=== PATIENT | male | born 1975 | race Caucasian/White ===

== ENCOUNTER 2016-12-17 21:50 | Inpatient (IN) | payer OTHER ==
[2016-12-17 22:42] LABS: BASO # 0.1 K/uL (0.0-0.2); BASO % 1.3 % (0.0-2.0); EOS # 0.1 K/uL (0.0-0.7); EOS % 0.9 % (0.0-4.0); HEMATOCRIT 34.8 % (35.0-51.0); LYMPH # 0.7 K/uL (1.0-4.3); LYMPH % 11.7 % (20.0-40.0); MEAN CELL VOLUME 99.8 fl (80.0-94.0); MEAN CORPUSCULAR HEMOGLOBIN 32.2 pg (27.0-31.0); MEAN CORPUSCULAR HGB CONC 32.3 g/dL (33.0-37.0); MONO # 0.4 K/uL (0.0-0.8); MONO % 7.6 % (0.0-10.0); NEUT # 4.6 K/uL (1.8-7.0); NEUT % 78.5 % (50.0-75.0); NRBC % 0.2 % (0.0-0.0); RED CELL DISTRIBUTION WIDTH 16.2 % (11.5-14.5); WHITE BLOOD COUNT 5.8 K/uL (4.8-10.8)
[2016-12-17 22:59] LABS: ALB/GLOB RATIO 1.2 (1.0-2.1); CALCIUM 9.7 mg/dL (8.4-10.2); TOTAL PROTEIN 7.5 G/DL (6.3-8.2)
[2016-12-17 23:21] LABS: ABG ALLEN TEST YES; ARTERIAL BLOOD GAS HCO3 27.8 mmol/L (21-28); ARTERIAL BLOOD GAS PH 7.51 (7.35-7.45); ARTERIAL BLOOD GAS PO2 110 mm/Hg (80-100)
[2016-12-17 23:40] LABS: TROPONIN I 0.211 ng/mL (0.00-0.120)
--- NOTE | 2016-12-17 23:40 | ED PDOC ---
HPI: Abdomen Time Seen by Provider: 12/17/16 22:04 Chief Complaint (Nursing): Abdominal Pain Chief Complaint (Provider): abdominal pain History Per: Patient History/Exam Limitations: no limitations Outside of [place] travel?: No Additional Complaint(s): 41yo M in ED with hx of Lupus, ESRD, HTN dialysis T TH Sat. last dialysis performed yesterday in ED with c/o of 1 week of abdominal pain and SOB worsened today with increased swelling to abdomen and associated pain. denies diarrhea, difficulty with urination, vomiting or cough. Past Medical History Reviewed: Historical Data, Nursing Documentation, Vital Signs Vital Signs: Last Vital Signs Temp 97.8 F 12/17/16 21:54 Pulse Resp 130 H 12/17/16 21:54 BP 176/106 H 12/17/16 21:54 Pulse Ox 98 12/18/16 00:00 - Medical History PMH: Anemia, HTN, End Stage Renal Disease, Chronic Kidney Disease Denies: HIV - Family History Family History: States: No Known Family Hx - Home Medications Home Medications: Ambulatory Orders Medication Instructions Recorded Sevelamer Carbonate [Renvela] 800 mg PO TID 04/25/15 Cinacalcet [Sensipar] 60 mg PO DAILY #0 tab 05/03/15 Epoetin Renny [Procrit] 10,000 unit IV TTS #0 ml 05/03/15 Sevelamer Carbonate [Renvela] 0.8 gm PO TIDWM #0 packet 05/03/15 guaiFENesin/Codeine [Robitussin 5 ml PO Q6 PRN #0 udc 05/03/15 w/Codeine] Vancomycin 1 GM [Vancomycin 1GM in 1 gm IVPB TTS #0 bag 05/15/15 Normal Saline Addvantage] - Allergies Allergies/Adverse Reactions: Allergies Allergy/AdvReac Type Severity Reaction Status Date / Time No Known Allergies Allergy Verified 12/17/16 21:53 Review of Systems ROS Statement: Except As Marked, All Systems Reviewed And Found Negative Constitutional: Negative for: Fever, Chills Cardiovascular: Negative for: Chest Pain Respiratory: Positive for: Shortness of Breath, SOB with Exertion. Negative for : Sputum Gastrointestinal: Positive for: Abdominal Pain. Negative for: Nausea, Vomiting Physical Exam - Reviewed Nursing Documentation Reviewed: Yes Vital Signs Reviewed: Yes - Physical Exam Appears: Positive for: No Acute Distress, Uncomfortable Skin: Positive for: Normal Color, Warm, DRY Cardiovascular/Chest: Positive for: JVD, Murmur (aortic stenosis new onset), Tachycardia Respiratory: Positive for: Accessory Muscle Use. Negative for: Decreased Breath Sounds, Wheezing, Plerual Rub Gastrointestinal/Abdominal: Positive for: Bowel Sounds, Distended, Asicites Back: Positive for: Normal Inspection Extremity: Positive for: Pedal Edema, Swelling Neurologic/Psych: Positive for: Alert, Oriented - Laboratory Results Result Diagrams: 12/17/16 22:25 12/17/16 22:25 - ECG ECG Rhythm: Positive for: Normal QRS, Normal ST Segment, Sinus Tachycardia O2 Sat by Pulse Oximetry: 98 Pulse Ox Interpretation: Normal - Radiology X-Ray: Interpreted by Me (viewed by [facility]) X-Ray Interpretation: Heart Size - Progress ED Course And Treament: due to distension of abd will need CT of abd and chest xray. PT will get ABG, cbc,cmp, BNP, Trop EKG. CT scan ordered: IMPRESSION: Large amount of free fluid throughout the abdomen and pelvis with mesenteric edema. Thank you for allowing us to participate in the care of your patient. Dictated and Authenticated by: Felipa Roberts MD 12/17/2016 11:42 PM Eastern Time ([place] & [place]) [facility] made aware of case. pt will need paracentesis in the AM with IR Trop. and Creatine elevated. Previous records show elevated creatine in the past unchanged from 2016. Pt with elevated trop however no previous trop noted from previous records. elevated troponin may be related to elevated creatine and ESRD Pt will be admitted to [facility] for parcentisis in the AM. Re-evaluation Time: 00:13 Condition: Unchanged Medical Decision Making Medical Decision Making: admission for new onset aortic stenosis, elevated creatine and need for paracentesisi. Disposition - Clinical Impression Clinical Impression: ESRD (end stage renal disease) on dialysis, Peritoneal fluid, Elevated serum creatinine - Patient ED Disposition Is Patient to be Admitted: Yes - Disposition Disposition Time: 00:16 Condition: FAIR Forms: [facility] ([place]uan) - Pt Status Changed To: Hospital Disposition Of: Inpatient - Admit Certification Admit to Inpatient:: After my assessment, the patient will require hospitalization for at least two midnights. This is because of the severity of symptoms shown, intensity of services needed, and/or the medical risk in this patient being treated as an outpatient.
[2016-12-17 23:42] LABS: PARTIAL THROMBOPLASTIN TIME 69.2 Seconds (25.6-37.1)
--- NOTE | 2016-12-17 23:42 | CT ---
EXAM: CT Abdomen and Pelvis Without Intravenous Contrast EXAM DATE/TIME: 12/17/2016 10:13 PM CLINICAL HISTORY: 41 years old, male; Pain; Other: Diffuse abd pain. Dialysis; Additional info: Diffuse abd pain , dialysis TECHNIQUE: Axial computed tomography images of the abdomen and pelvis without intravenous contrast. All CT scans at this facility use one or more dose reduction techniques, viz.: automated exposure control; ma/kV adjustment per patient size (including targeted exams where dose is matched to indication; i.e. head); or iterative reconstruction technique. Coronal and sagittal reformatted images were created and reviewed. COMPARISON: No relevant prior studies available. FINDINGS: Cardiomegaly. Trace pleural fluid bilaterally. Free fluid in the abdomen and pelvis. The gallbladder is contracted. The liver, spleen, and pancreas are grossly normal. There are low attenuation lesions in the right kidney. The left kidney is hypotrophic. IMPRESSION: Large amount of free fluid throughout the abdomen and pelvis with mesenteric edema.
[2016-12-18 00:31] LABS: RBC URINE 4 /hpf (0-3); URINE BACTERIA RARE (<OCC); URINE BILIRUBIN NEGATIVE (NEGATIVE); URINE COLOR YELLOW (YELLOW); URINE GLUCOSE (UA) 150 mg/dL (Normal); URINE KETONE NEGATIVE (NEGATIVE); URINE LEUKOCYTE ESTERASE NEG Leu/uL (Negative); URINE PROTEIN >=500 mg/dL (NEGATIVE); URINE UROBILINOGEN 0.2-1.0 mg/dL (0.2-1.0); WBC URINE 1 /hpf (0-5)
[2016-12-18 00:32] LABS: URINE BLOOD SMALL (NEGATIVE)
[2016-12-18 06:37] LABS: MEAN CELL VOLUME 99.8 fl (80.0-94.0); MEAN CORPUSCULAR HEMOGLOBIN 32.4 pg (27.0-31.0); MEAN CORPUSCULAR HGB CONC 32.4 g/dL (33.0-37.0); RED CELL DISTRIBUTION WIDTH 15.6 % (11.5-14.5); WHITE BLOOD COUNT 7.5 K/uL (4.8-10.8)
[2016-12-18 06:53] LABS: ALB/GLOB RATIO 1.1 (1.0-2.1); BILIRUBIN,TOTAL 1.9 mg/dl (0.2-1.3); CALCIUM 9.5 mg/dL (8.4-10.2); POTASSIUM 5.6 MMOL/L (3.6-5.0); TOTAL PROTEIN 6.8 G/DL (6.3-8.2)
[2016-12-18 07:09] LABS: T4 7.74 ug/dl (5.5-11.0)
[2016-12-18 07:22] LABS: THYROID STIMULATING HORMONE 16.7 mIU/ML (0.46-4.68)
--- NOTE | 2016-12-18 07:39 | CARD ---
APPROVED REPORT EKG Measurement Heart [id number] <Conclusion> Sinus tachycardia Otherwise normal ECG
--- NOTE | 2016-12-18 08:37 | RAD ---
HISTORY: Cough COMPARISON: 04/29/2015 TECHNIQUE: Chest PA and lateral FINDINGS: LUNGS: Pulmonary nodule identified on the prior study is no longer seen. PLEURA: No significant pleural effusion identified. No pneumothorax apparent. CARDIOVASCULAR: No radiographic findings to suggest acute or significant cardiovascular disease. Stable appearance of vascular stent OSSEOUS STRUCTURES: No significant abnormalities. VISUALIZED UPPER ABDOMEN: Normal. OTHER FINDINGS: None. IMPRESSION: No active disease.
[2016-12-18] MEDS ORDERED: SEVELAMER CARBONATE PO SCH (09:00)
[2016-12-18 09:31] VITALS: BMI 28.5
--- NOTE | 2016-12-18 11:03 | CP.PCM.CON ---
History of Present Illness - History of Present Illness History of Present Illness: Patient is a 41 years of age Admitted with abdominal pain and distention. Patient known with end-stage renal disease history of fluid per se reported and hypertension in addition to that end stage renal disease he has been receiving dialysis TTS. However the patient is edematous as is today with hyperkalemia therefore withdrawn give him dialysis today extra treatment Patient complaining of some shortness of breath Medical history as noted Review of Systems - Constitutional Constitutional: As Per HPI, Weakness - Cardiovascular Cardiovascular: Dyspnea, Dyspnea on Exertion, Edema. absent: Chest Pain - Respiratory Respiratory: Dyspnea. absent: Hemoptysis - Gastrointestinal Gastrointestinal: Abdominal Pain, Bloating - Reproductive: Male Reproductive:Male: As Per HPI - Neurological Neurological: As Per HPI - Psychiatric Psychiatric: As Per HPI - Hematologic/Lymphatic Hematologic: absent: Easy Bleeding, Easy Bruising Past Patient History - Past Medical History & Family History Past Medical History?: Yes - Past Social History Smoking Status: Never Smoked - CARDIAC Hx Cardiac Disorders: Yes Hx Hypertension: Yes - PULMONARY Hx Respiratory Disorders: No - NEUROLOGICAL Hx Neurological Disorder: No - HEENT Hx HEENT Problems: No - RENAL Hx Chronic Kidney Disease: Yes Type of Dialysis Access: Left AV SHUNT Date of Last Dialysis Treatment: 12/16/16 Hx Renal Failure: Yes - ENDOCRINE/METABOLIC Hx Endocrine Disorders: Yes Hx Systemic Lupus Erythematosus: Yes - HEMATOLOGICAL/ONCOLOGICAL Hx Blood Disorders: Yes Hx AIDS: No Hx Anemia: Yes Hx Blood Transfusions: Yes Hx Human Immunodeficiency Virus (HIV): No - INTEGUMENTARY Hx Dermatological Problems: No - MUSCULOSKELETAL/RHEUMATOLOGICAL Hx Musculoskeletal Disorders: No Hx Falls: No - GASTROINTESTINAL Hx Gastrointestinal Disorders: No - GENITOURINARY/GYNECOLOGICAL Hx Genitourinary Disorders: No - PSYCHIATRIC Hx Psychophysiologic Disorder: No Hx Substance Use: No - SURGICAL HISTORY Hx Surgeries: Yes Hx Arteriovenous Shunt: Yes - ANESTHESIA Hx Anesthesia: Yes Hx Anesthesia Reactions: No Meds Allergies/Adverse Reactions: Allergies Allergy/AdvReac Type Severity Reaction Status Date / Time No Known Allergies Allergy Verified 12/17/16 21:53 - Medications Medications: Current Medications Levothyroxine Sodium (Synthroid) 25 mcg PO DAILY@0630 [facility] Sevelamer HCl (Renagel) 1,600 mg PO TID [facility] Last Admin: 12/18/16 09:28 Dose: 1,600 mg Physical Exam - Constitutional Appears: No Acute Distress - ENT Exam ENT Exam: Mucous Membranes Moist - Respiratory Exam Respiratory Exam: NORMAL BREATHING PATTERN. absent: Chest Wall Tenderness - Cardiovascular Exam Cardiovascular Exam: absent: JVD, Rubs - GI/Abdominal Exam GI & Abdominal Exam: Distended, Guarding, Normal Bowel Sounds. absent: Diminished Bowel Sounds - Extremities Exam Extremities exam: Negative for: calf tenderness - Back Exam Back exam: absent: CVA tenderness (L), CVA tenderness (R) - Neurological Exam Neurological exam: Alert Results - Vital Signs Recent Vital Signs: Last Vital Signs Temp 98.4 F 12/18/16 08:14 Pulse 105 H 12/18/16 08:14 Resp 18 12/18/16 08:14 BP 155/98 H 12/18/16 08:14 Pulse Ox 97 12/18/16 08:14 - Labs Result Diagrams: 12/18/16 05:15 12/18/16 05:15 Labs: Laboratory Results - last 24 hr 12/17/16 12/18/16 12/18/16 23:59 00:01 05:15 WBC RBC Hgb Hct MCV MCH MCHC RDW Plt Count Sodium Potassium Chloride Carbon Dioxide Anion Gap BUN Creatinine Est GFR ( Amer) Est GFR (Non-Af Amer) Random Glucose Calcium Total Bilirubin AST ALT Alkaline Phosphatase Troponin I 0.1980 H* NT-Pro-B Natriuret Pep 073265 H Total Protein Albumin Globulin Albumin/Globulin Ratio Triglycerides Cholesterol LDL Cholesterol Direct HDL Cholesterol Vitamin B12 Thyroxine (T4) TSH 3rd Generation Urine Color Yellow Urine Clarity Slighty-cloudy Urine pH 9.0 Ur Specific [place] 1.010 Urine Protein >=500 Urine Glucose (UA) 150 Urine Ketones Negative Urine Blood Small Urine Nitrate Negative Urine Bilirubin Negative Urine Urobilinogen 0.2-1.0 Ur Leukocyte Esterase Neg Urine RBC (Auto) 4 H Urine Microscopic WBC 1 Ur Squamous Epith Cells 1 Urine Bacteria Rare 12/18/16 12/18/16 05:15 05:15 WBC 7.5 RBC 3.41 L Hgb 11.0 L Hct 34.0 L MCV 99.8 H MCH 32.4 H MCHC 32.4 L RDW 15.6 H Plt Count 78 L Sodium 139 Potassium 5.6 H Chloride 101 Carbon Dioxide 24 Anion Gap 20 BUN 76 H Creatinine 9.5 H* Est GFR ( Amer) 7 Est GFR (Non-Af Amer) 6 Random Glucose 80 Calcium 9.5 Total Bilirubin 1.9 H AST 35 ALT 34 Alkaline Phosphatase 191 H Troponin I NT-Pro-B Natriuret Pep 33290 H Total Protein 6.8 Albumin 3.6 Globulin 3.2 Albumin/Globulin Ratio 1.1 Triglycerides 70 Cholesterol 114 LDL Cholesterol Direct 44 HDL Cholesterol 48 Vitamin B12 465 Thyroxine (T4) 7.74 TSH 3rd Generation 16.70 H Urine Color Urine Clarity Urine pH Ur Specific [place] Urine Protein Urine Glucose (UA) Urine Ketones Urine Blood Urine Nitrate Urine Bilirubin Urine Urobilinogen Ur Leukocyte Esterase Urine RBC (Auto) Urine Microscopic WBC Ur Squamous Epith Cells Urine Bacteria Assessment & Plan (1) ESRD (end stage renal disease) on dialysis Assessment and Plan: Patient with end stage renal disease with significant ascites leg edema abdominal pain hyperkalemia Patient dialysis scheduled TTS however we'll going to given extra hemodialysis today because of the excessive fluid and hyperkalemia Potassium 2 milliequivalents Sodium 138 Remove around 5374-0638 mL as tolerated Status: Chronic
--- NOTE | 2016-12-18 11:51 | CP.PCM.CON ---
<Abiodun Morataya - Last Filed: 12/18/16 12:53> History of Present Illness - History of Present Illness History of Present Illness: Initial GI Consult Note Luke Perez is a 41M w/ hx of ESRD on HD (TThS) 2/2 unknown etiology and lupus who presents to [facility] with complaints of abd distention. Pt states that he first noticed his abd becoming distented 1 month ago. He that that the progression was gradual. He states that he started to have generalized discomfort and pain starting 1 week ago. He denies any previous hx of liver disease. He denies any hopitalization for the same. Denies any Jaundice and sceral icterus. Pt states that this is the first incidence of abd distention. He notes that his last dialysis session was on Sat (3 days ago) and he is compliant with his schedule. Pt denies any hx of Etoh or illicit drugs. He denies any hematemesis. BRBPR, coffee ground emesis, nausea, or vomiting. He is scheduled for dialysis and abd paratensis today. Med hx: ESRD, Renal agenesis (only has 1 kidney as per EMR) Surg hx: none as per pt Social hx: Denies any illicit drugs, smoking, or alcohol consumption Family hx: denies any sig for colon ca or other malig Endo hx: Denies ROS: 12-point ROS is neg other than above Past Patient History - Past Medical History & Family History Past Medical History?: Yes - Past Social History Smoking Status: Never Smoked - CARDIAC Hx Cardiac Disorders: Yes Hx Hypertension: Yes - PULMONARY Hx Respiratory Disorders: No - NEUROLOGICAL Hx Neurological Disorder: No - HEENT Hx HEENT Problems: No - RENAL Hx Chronic Kidney Disease: Yes Type of Dialysis Access: Left AV SHUNT Date of Last Dialysis Treatment: 12/16/16 Hx Renal Failure: Yes - ENDOCRINE/METABOLIC Hx Endocrine Disorders: Yes Hx Systemic Lupus Erythematosus: Yes - HEMATOLOGICAL/ONCOLOGICAL Hx Blood Disorders: Yes Hx AIDS: No Hx Anemia: Yes Hx Blood Transfusions: Yes Hx Human Immunodeficiency Virus (HIV): No - INTEGUMENTARY Hx Dermatological Problems: No - MUSCULOSKELETAL/RHEUMATOLOGICAL Hx Musculoskeletal Disorders: No Hx Falls: No - GASTROINTESTINAL Hx Gastrointestinal Disorders: No - GENITOURINARY/GYNECOLOGICAL Hx Genitourinary Disorders: No - PSYCHIATRIC Hx Psychophysiologic Disorder: No Hx Substance Use: No - SURGICAL HISTORY Hx Surgeries: Yes Hx Arteriovenous Shunt: Yes - ANESTHESIA Hx Anesthesia: Yes Hx Anesthesia Reactions: No Meds Allergies/Adverse Reactions: Allergies Allergy/AdvReac Type Severity Reaction Status Date / Time No Known Allergies Allergy Verified 12/17/16 21:53 - Medications Medications: Current Medications Levothyroxine Sodium (Synthroid) 25 mcg PO DAILY@0630 [facility] Sevelamer HCl (Renagel) 1,600 mg PO TID [facility] Last Admin: 12/18/16 09:28 Dose: 1,600 mg Physical Exam - Constitutional Appears: Well, No Acute Distress - Head Exam Head Exam: ATRAUMATIC, NORMOCEPHALIC - Eye Exam Eye Exam: Normal appearance - ENT Exam ENT Exam: Mucous Membranes Moist - Respiratory Exam Respiratory Exam: Rhonchi, Wheezes, NORMAL BREATHING PATTERN. absent: Rales - Cardiovascular Exam Cardiovascular Exam: REGULAR RHYTHM, +S1, +S2, Systolic Murmur - GI/Abdominal Exam GI & Abdominal Exam: Distended, Hernia. absent: Guarding, Organomegaly, Rigid, Tenderness Additional comments: + shifting dullness and fluid wave - Extremities Exam Extremities exam: Positive for: pedal edema - Neurological Exam Neurological exam: Alert, Oriented x3 - Psychiatric Exam Psychiatric exam: Normal Affect, Normal Mood - Skin Skin Exam: Dry, Intact, Normal Color, Warm Results - Vital Signs Recent Vital Signs: Last Vital Signs Temp 98.4 F 12/18/16 08:14 Pulse 105 H 12/18/16 08:14 Resp 18 12/18/16 08:14 BP 155/98 H 12/18/16 08:14 Pulse Ox 97 12/18/16 08:14 - Labs Result Diagrams: 12/18/16 05:15 12/18/16 05:15 Labs: Laboratory Results - last 24 hr 12/17/16 12/18/16 12/18/16 23:59 00:01 05:15 WBC RBC Hgb Hct MCV MCH MCHC RDW Plt Count Sodium Potassium Chloride Carbon Dioxide Anion Gap BUN Creatinine Est GFR ( Amer) Est GFR (Non-Af Amer) Random Glucose Calcium Total Bilirubin AST ALT Alkaline Phosphatase Troponin I 0.1980 H* NT-Pro-B Natriuret Pep 154369 H Total Protein Albumin Globulin Albumin/Globulin Ratio Triglycerides Cholesterol LDL Cholesterol Direct HDL Cholesterol Vitamin B12 Thyroxine (T4) TSH 3rd Generation Urine Color Yellow Urine Clarity Slighty-cloudy Urine pH 9.0 Ur Specific [place] 1.010 Urine Protein >=500 Urine Glucose (UA) 150 Urine Ketones Negative Urine Blood Small Urine Nitrate Negative Urine Bilirubin Negative Urine Urobilinogen 0.2-1.0 Ur Leukocyte Esterase Neg Urine RBC (Auto) 4 H Urine Microscopic WBC 1 Ur Squamous Epith Cells 1 Urine Bacteria Rare 12/18/16 12/18/16 05:15 05:15 WBC 7.5 RBC 3.41 L Hgb 11.0 L Hct 34.0 L MCV 99.8 H MCH 32.4 H MCHC 32.4 L RDW 15.6 H Plt Count 78 L Sodium 139 Potassium 5.6 H Chloride 101 Carbon Dioxide 24 Anion Gap 20 BUN 76 H Creatinine 9.5 H* Est GFR ( Amer) 7 Est GFR (Non-Af Amer) 6 Random Glucose 80 Calcium 9.5 Total Bilirubin 1.9 H AST 35 ALT 34 Alkaline Phosphatase 191 H Troponin I NT-Pro-B Natriuret Pep 42207 H Total Protein 6.8 Albumin 3.6 Globulin 3.2 Albumin/Globulin Ratio 1.1 Triglycerides 70 Cholesterol 114 LDL Cholesterol Direct 44 HDL Cholesterol 48 Vitamin B12 465 Thyroxine (T4) 7.74 TSH 3rd Generation 16.70 H Urine Color Urine Clarity Urine pH Ur Specific [place] Urine Protein Urine Glucose (UA) Urine Ketones Urine Blood Urine Nitrate Urine Bilirubin Urine Urobilinogen Ur Leukocyte Esterase Urine RBC (Auto) Urine Microscopic WBC Ur Squamous Epith Cells Urine Bacteria Assessment & Plan - Assessment and Plan (Free Text) Assessment: Luke Trejo is a 41M w/ hx of ESRD and lupus who presents with abd distention. Etiology is likely due to renal failure vs heart failure, r/o portal HTN 2/2 liver disease 1. Ascities, likely renal vs cardiac 2. Fluid overload 3. ESRD 2/2 unknown etiology Plan: -agree with diag and [place] paracentesis - recommend abd fluid cell count, gram stain, culture, albumin - will likely go for tap today as per [employer] - will also go for another dialysis session today - will hold on abx as pt is afebrile - recommend starting diuretics as pt makes urine - would like to obtain liver CT, will need renal clearance to coordinate dialysis D/W Dr. Santillan <Sandra Santillan MD - Last Filed: 12/18/16 13:13> Meds - Medications Medications: Current Medications Levothyroxine Sodium (Synthroid) 25 mcg PO DAILY@0630 [facility] Sevelamer HCl (Renagel) 1,600 mg PO TID [facility] Last Admin: 12/18/16 09:28 Dose: 1,600 mg Results - Vital Signs Recent Vital Signs: Last Vital Signs Temp 97.6 F 12/18/16 12:06 Pulse 101 H 12/18/16 12:06 Resp 18 12/18/16 12:06 BP 159/94 H 12/18/16 12:06 Pulse Ox 97 12/18/16 12:06 - Labs Result Diagrams: 12/18/16 05:15 12/18/16 05:15 Labs: Laboratory Results - last 24 hr 12/17/16 12/18/16 12/18/16 23:59 00:01 05:15 WBC RBC Hgb Hct MCV MCH MCHC RDW Plt Count Sodium Potassium Chloride Carbon Dioxide Anion Gap BUN Creatinine Est GFR ( Amer) Est GFR (Non-Af Amer) Random Glucose Calcium Total Bilirubin AST ALT Alkaline Phosphatase Troponin I 0.1980 H* NT-Pro-B Natriuret Pep 100999 H Total Protein Albumin Globulin Albumin/Globulin Ratio Triglycerides Cholesterol LDL Cholesterol Direct HDL Cholesterol Vitamin B12 Thyroxine (T4) TSH 3rd Generation Urine Color Yellow Urine Clarity Slighty-cloudy Urine pH 9.0 Ur Specific [place] 1.010 Urine Protein >=500 Urine Glucose (UA) 150 Urine Ketones Negative Urine Blood Small Urine Nitrate Negative Urine Bilirubin Negative Urine Urobilinogen 0.2-1.0 Ur Leukocyte Esterase Neg Urine RBC (Auto) 4 H Urine Microscopic WBC 1 Ur Squamous Epith Cells 1 Urine Bacteria Rare 12/18/16 12/18/16 05:15 05:15 WBC 7.5 RBC 3.41 L Hgb 11.0 L Hct 34.0 L MCV 99.8 H MCH 32.4 H MCHC 32.4 L RDW 15.6 H Plt Count 78 L Sodium 139 Potassium 5.6 H Chloride 101 Carbon Dioxide 24 Anion Gap 20 BUN 76 H Creatinine 9.5 H* Est GFR ( Amer) 7 Est GFR (Non-Af Amer) 6 Random Glucose 80 Calcium 9.5 Total Bilirubin 1.9 H AST 35 ALT 34 Alkaline Phosphatase 191 H Troponin I NT-Pro-B Natriuret Pep 00122 H Total Protein 6.8 Albumin 3.6 Globulin 3.2 Albumin/Globulin Ratio 1.1 Triglycerides 70 Cholesterol 114 LDL Cholesterol Direct 44 HDL Cholesterol 48 Vitamin B12 465 Thyroxine (T4) 7.74 TSH 3rd Generation 16.70 H Urine Color Urine Clarity Urine pH Ur Specific [place] Urine Protein Urine Glucose (UA) Urine Ketones Urine Blood Urine Nitrate Urine Bilirubin Urine Urobilinogen Ur Leukocyte Esterase Urine RBC (Auto) Urine Microscopic WBC Ur Squamous Epith Cells Urine Bacteria Attending/Attestation - Attestation I have personally seen and examined this patient.: Yes I have fully participated in the care of the patient.: Yes I have reviewed all pertinent clinical information: Yes Notes (Text): 12/18/16 13:10 This is a 41 yr old M with history of ESRD and lupus who presents with new onset abdominal distention in setting of ascites. Etiology is likely due to renal failure vs heart failure, r/o portal HTN 2/2 liver disease. Will get abdominal doppler to rule out portal vein thrombosis. Get diagnostic and therapeutic ascitic tap and send for albumin and total protein to calculate SAAG. Consider starting diuretics - has urine output.
--- NOTE | 2016-12-18 13:11 | HP ---
CHIEF COMPLAINT: Abdominal pain. HISTORY OF PRESENT ILLNESS: This is a 41-year-old male known case of hypertension, end-stage renal disease, anemia, who is on chronic dialysis. Dialysis done yesterday last time and the patient was having abdominal pain for about 1 week, which got worse, so the patient was brought to the emergency room and was admitted for further management. PAST MEDICAL HISTORY: Significant for hypertension; end-stage renal disease, requiring renal replacement therapy; and anemia. PERSONAL HISTORY: The patient is currently nonsmoker, nondrinker, no substance abuse. REVIEW OF SYSTEMS: Positive for abdominal pain. Review of system otherwise negative for headache, dizziness, syncope, loss of consciousness, chest pain, shortness of breath, nausea, vomiting, diarrhea, constipation, anemia, joint or extremity pain. Review of systems of all other organ system is unremarkable. MEDICATIONS: The patient is on multiple medications which is as per reconciliation sheet, which was reviewed and ordered. ALLERGIES: THE PATIENT IS NOT ALLERGIC TO ANY MEDICATIONS. FAMILY HISTORY: Noncontributory. PHYSICAL EXAMINATION: GENERAL: Well built, well nourished, overweight 41-year-old male, in no acute distress. The patient is actually feeling better than yesterday and abdominal pain is almost gone. VITAL SIGNS: Temperature 98.7, pulse 102, respirations 20, blood pressure 154/83. HEENT: Pupils are reacting to light. NECK: No JVD. No thyromegaly. No lymphadenopathy. No nystagmus. Normocephalic and atraumatic skull. HEART: S1 and S2 normal and regular. No significant murmur, gallop, or rub is heard. LUNGS: Shows good bilateral air exchange. No rales or rhonchi. ABDOMEN: Shows the patient has distended abdomen with clear presence of ascites. No signs of acute abdomen. No guarding. No rigidity. No rebound. Bowel sounds are plus and normal. There is no real tenderness at this time. EXTREMITIES: No edema, no calf swelling. No tenderness. No acute ischemia. CENTRAL NERVOUS SYSTEM: Essentially unchanged. There is no sign of any acute gross focal motor or sensory neurological deficit. DIAGNOSTIC DATA: Available diagnostic data reviewed. Telemetry monitoring does not reveal any significant arrhythmias. Urinalysis is normal. TSH level is 16.7. Sodium 139, potassium 5.6, chloride 101, bicarb 24, BUN 76, creatinine 9.5. SMA-12 is unremarkable. Troponin level is 0.21. BNP is 293,000. WBC is 7.5, hemoglobin 11, hematocrit 34, and platelets 70. ADMITTING IMPRESSION: Ascites, rule out subacute bacterial peritonitis, rule out cirrhosis of liver, end-stage renal disease, hypertension, and anemia. PLAN: As ordered. Case and plan discussed with the patient. Kayode Yan MD
[2016-12-18] MEDS ORDERED: Lidocaine 1% Inj (20ml) ONE ×2 (15:00→15:07)
--- NOTE | 2016-12-18 15:14 | PCM.SURG1 ---
Surgeon's Initial Post Op Note - Surgeon's Notes Surgeon: Jeff Licona MD Language Therapist: NONE Type of Anesthesia: Local Pre-Operative Diagnosis: Ascites Operative Findings: US showed a large amount of ascites Post-Operative Diagnosis: Ascites Operation Performed: US guided paracentesis. Specimen/Specimens Removed: 6 liters of slight serosanguinous fluid Estimated Blood Loss: EBL {In ML}: 0 Blood Products Given: N/A Drains Used: No Drains Post-Op Condition: Fair Date of Surgery/Procedure: 12/18/16 Time of Surgery/Procedure: 16:00
[2016-12-18 15:20] LABS: BODY FLUID TYPE PERITONEAL/ASCITES
--- NOTE | 2016-12-18 15:58 | CP.PCM.CON ---
History of Present Illness - History of Present Illness History of Present Illness: Consultation requested for evaluation of new onset CHF HPI: 41-year-old male with past medical history significant for end-stage renal disease on hemodialysis for the last 10 years history of lupus presenting with complaints of worsening dyspnea and on exertion and abdominal distention. According to the patient at baseline he is fairly active and denies having any chest pains has NYHA for the past with dyspnea. Over the course of the last few weeks he has been getting progressively short of breath and his abdomen has been distending progressively to the point where he can barely walk with minimal activity gets severely short of breath and right now is at NYHA functional class 2/3 dyspnea. He denies having any chest pains. Does have 3 pillow orthopnea and frequent PNDs. Review of Systems - Review of Systems All systems: reviewed and no additional remarkable complaints except - Constitutional Constitutional: As Per HPI - EENT Eyes: As Per HPI Ears: As Per HPI Nose/Mouth/Throat: As Per HPI - Cardiovascular Cardiovascular: As Per HPI, Dyspnea, Dyspnea on Exertion - Respiratory Respiratory: As Per HPI, Cough, Dyspnea - Gastrointestinal Gastrointestinal: As Per HPI, Bloating - Genitourinary Genitourinary: As Per HPI - Reproductive: Male Reproductive:Male: As Per HPI - Musculoskeletal Musculoskeletal: As Per HPI - Integumentary Integumentary: As Per HPI - Neurological Neurological: As Per HPI - Psychiatric Psychiatric: As Per HPI - Endocrine Endocrine: As Per HPI - Hematologic/Lymphatic Hematologic: As Per HPI Past Patient History - Past Medical History & Family History Past Medical History?: Yes Pertinent Family History: +ve for HTN , denies any hx of CAD - Past Social History Smoking Status: Never Smoked - CARDIAC Hx Cardiac Disorders: Yes Hx Hypertension: Yes - PULMONARY Hx Respiratory Disorders: No - NEUROLOGICAL Hx Neurological Disorder: No - HEENT Hx HEENT Problems: No - RENAL Hx Chronic Kidney Disease: Yes Type of Dialysis Access: Left AV SHUNT Date of Last Dialysis Treatment: 12/16/16 Hx Renal Failure: Yes - ENDOCRINE/METABOLIC Hx Endocrine Disorders: Yes Hx Systemic Lupus Erythematosus: Yes - HEMATOLOGICAL/ONCOLOGICAL Hx Blood Disorders: Yes Hx AIDS: No Hx Anemia: Yes Hx Blood Transfusions: Yes Hx Human Immunodeficiency Virus (HIV): No - INTEGUMENTARY Hx Dermatological Problems: No - MUSCULOSKELETAL/RHEUMATOLOGICAL Hx Musculoskeletal Disorders: No Hx Falls: No - GASTROINTESTINAL Hx Gastrointestinal Disorders: No - GENITOURINARY/GYNECOLOGICAL Hx Genitourinary Disorders: No - PSYCHIATRIC Hx Psychophysiologic Disorder: No Hx Substance Use: No - SURGICAL HISTORY Hx Surgeries: Yes Hx Arteriovenous Shunt: Yes - ANESTHESIA Hx Anesthesia: Yes Hx Anesthesia Reactions: No Meds Allergies/Adverse Reactions: Allergies Allergy/AdvReac Type Severity Reaction Status Date / Time No Known Allergies Allergy Verified 12/17/16 21:53 - Medications Medications: Current Medications Cinacalcet (Sensipar) 60 mg PO DAILY [facility] Levothyroxine Sodium (Synthroid) 25 mcg PO DAILY@0630 [facility] Sevelamer HCl (Renagel) 1,600 mg PO TID [facility] Last Admin: 12/18/16 13:48 Dose: 1,600 mg Physical Exam - Constitutional Appears: Well - Head Exam Head Exam: ATRAUMATIC, NORMAL INSPECTION, NORMOCEPHALIC - Eye Exam Eye Exam: EOMI, Normal appearance, PERRL Pupil Exam: NORMAL ACCOMODATION, PERRL - ENT Exam ENT Exam: Mucous Membranes Moist, Normal Exam - Neck Exam Neck exam: Positive for: Normal Inspection - Respiratory Exam Respiratory Exam: Rales, NORMAL BREATHING PATTERN - Cardiovascular Exam Cardiovascular Exam: Tachycardia, +S1, +S2, Systolic Murmur - GI/Abdominal Exam GI & Abdominal Exam: Distended, Normal Bowel Sounds, Soft. absent: Tenderness - Extremities Exam Extremities exam: Positive for: normal inspection, pedal pulses present - Back Exam Back exam: NORMAL INSPECTION - Neurological Exam Neurological exam: Alert, CN II-XII Intact, Oriented x3, Reflexes Normal - Psychiatric Exam Psychiatric exam: Normal Affect, Normal Mood - Skin Skin Exam: Dry, Intact, Normal Color, Warm Results - Vital Signs Recent Vital Signs: Last Vital Signs Temp 98.2 F 12/18/16 14:55 Pulse 95 H 12/18/16 14:55 Resp 18 12/18/16 14:55 BP 150/94 H 12/18/16 14:55 Pulse Ox 97 12/18/16 12:06 - Labs Result Diagrams: 12/18/16 05:15 12/18/16 05:15 Labs: Laboratory Results - last 24 hr 12/18/16 15:00 Fluid Source Peritoneal/ascites Fluid Total Protein 4.2 Assessment & Plan (1) Troponin level elevated Assessment and Plan: Etiology ? 2' to CAD .vs acute systolic CHF exacerbation Keep pt on IV heparin per ACS protocol asa, bb, statins will need further w/u with cardiac catheterization Status: Acute (2) CHF (congestive heart failure), NYHA class IV Assessment and Plan: new onset will need w/u with complete heart catheterization RAAS modulators fluid removal with HD Status: Acute (3) ESRD (end stage renal disease) on dialysis Assessment and Plan: neprho following Status: Chronic (4) Lupus (systemic lupus erythematosus) Status: Acute
[2016-12-18 16:29] LABS: BF GROSS APPEARANCE BLOODY (CLEAR)
[2016-12-18] MEDS: Cinacalcet 60 MG TAB PO SCH (17:17)
[2016-12-18 17:22] LABS: BODY FLUID TOTAL COUNT 100 (0-0)
[2016-12-18 18:06] LABS: TROPONIN I 0.189 ng/mL (0.00-0.120)
[2016-12-18] MEDS ORDERED: Heparin 25,000units in D5W 25,000 UNITS/250 ML BAG IV SCH (18:30)
[2016-12-19] MEDS: Levothyroxine 25 MCG TAB PO SCH (05:55)
[2016-12-19 07:20] LABS: HEMATOCRIT 34.9 % (35.0-51.0); MEAN CORPUSCULAR HEMOGLOBIN 32.1 pg (27.0-31.0); MEAN CORPUSCULAR HGB CONC 32.4 g/dL (33.0-37.0); RED CELL DISTRIBUTION WIDTH 15.7 % (11.5-14.5); WHITE BLOOD COUNT 5.6 K/uL (4.8-10.8)
[2016-12-19 07:39] LABS: BILIRUBIN,TOTAL 1.9 mg/dl (0.2-1.3); CALCIUM 8.6 mg/dL (8.4-10.2); POTASSIUM 4.3 MMOL/L (3.6-5.0); TOTAL PROTEIN 6.2 G/DL (6.3-8.2)
--- NOTE | 2016-12-19 07:40 | CARD ---
APPROVED REPORT EXAM: Two-dimensional and M-mode echocardiogram with Doppler and color Doppler. Other Information Quality : ExcellentRhythm : NSR INDICATION Congestive Heart Failure 2D DIMENSIONS IVSd1.30 (0.7-1.1cm)LVDd5.97 (3.9-5.9cm) LVOT Diameter1.80 (1.8-2.4cm)PWd1.38 (0.7-1.1cm) IVSs1.45 (0.8-1.2cm)LVDs4.94 (2.5-4.0cm) FS (%) 17.3 %PWs1.73 (0.8-1.2cm) M-Mode DIMENSIONS Left Atrium (MM)5.76 (2.5-4.0cm)IVSd1.65 (0.7-1.1cm) Aortic Root2.75 (2.2-3.7cm)LVDd6.19 (4.0-5.6cm) Aortic Cusp Exc.1.95 (1.5-2.0cm)PWd1.29 (0.7-1.1cm) IVSs1.46 cmFS (%) 8 % LVDs5.69 (2.0-3.8cm)PWs1.82 cm Mitral Valve E/A ratio0.0 TDI E/Lateral E'0.0E/Medial E'0.0 Pulmonary Valve PV Peak Osgdmgml251.1cm/s Tricuspid Valve TR Peak [id number] [id number] Peak Gr.38mmHg [id number] LEFT VENTRICLE The Left Ventricle is moderately dilated. There is mild concentric left ventricular hypertrophy. Left ventricle systolic function is severely impaired. The Ejection Fraction is <20%. Severe generalised hypokinesia Transmitral Doppler flow pattern is Grade I-abnormal relaxation pattern. RIGHT VENTRICLE The right ventricle is normal size. There is normal right ventricular wall thickness. The right ventricular systolic function is normal. ATRIA The left atrium is moderately dilated. The right atrium is moderately dilated. AORTIC VALVE The aortic valve is normal in structure and function. No aortic regurgitation is present. There is no aortic valvular stenosis. MITRAL VALVE The mitral valve is normal in structure. There is no evidence of mitral valve prolapse. There is no mitral valve stenosis. Mitral regurgitation is moderate to severe. TRICUSPID VALVE The tricuspid valve is normal in structure. There is severe tricuspid regurgitation. Right ventricular systolic pressure is estimated at 50 mmHg. There is moderate-severe pulmonary hypertension. PULMONIC VALVE The pulmonary valve is normal in structure. There is mild pulmonic valvular regurgitation. GREAT VESSELS The aortic root is normal in size. The IVC is dilated. The IVC collapses <50% with inspiration. PERICARDIAL EFFUSION There is a small circumferential pericardial effusion. There is moderate left pleural effusion. <Conclusion> The Left Ventricle is moderately dilated. There is mild concentric left ventricular hypertrophy. Severe generalised hypokinesia Left ventricle systolic function is severely impaired. The Ejection Fraction is <20%. Transmitral Doppler flow pattern is Grade I-abnormal relaxation pattern. The left atrium is moderately dilated. The right atrium is moderately dilated. Mitral regurgitation is moderate to severe. There is severe tricuspid regurgitation. There is moderate-severe pulmonary hypertension. The IVC is dilated. The IVC collapses <50% with inspiration.
[2016-12-19] MEDS: Cinacalcet 60 MG TAB PO SCH (09:00)
--- NOTE | 2016-12-19 10:51 | CP.PCM.PN ---
Subjective - Date & Time of Evaluation Date of Evaluation: 12/19/16 Time of Evaluation: 10:50 - Subjective Subjective: Decrease shortness of breath Feeling much better Objective - Vital Signs/Intake and Output Vital Signs (last 24 hours): Temp Pulse Resp BP Pulse Ox 97.9 F 66 18 128/84 98 12/19/16 05:00 12/19/16 05:00 12/19/16 05:00 12/19/16 05:00 12/19/16 05:00 - Medications Medications: Current Medications Aspirin (Aspirin) 325 mg PO DAILY [facility] Last Admin: 12/19/16 06:43 Dose: 325 mg Atorvastatin Calcium (Lipitor) 40 mg PO DAILY@2100 [facility] Last Admin: 12/18/16 20:43 Dose: 40 mg Cinacalcet (Sensipar) 60 mg PO DAILY [facility] Last Admin: 12/18/16 17:17 Dose: 60 mg Heparin Sodium/Dextrose (Heparin 25,000 Units/250ml In D5w) 25,000 units in 250 mls @ 8 mls/hr IV .Q24H [facility] PRN Reason: Protocol Last Admin: 12/18/16 20:52 Dose: 8 mls/hr Levothyroxine Sodium (Synthroid) 25 mcg PO DAILY@0630 [facility] Last Admin: 12/19/16 05:55 Dose: Not Given Metoprolol Tartrate (Lopressor) 50 mg PO Q12 [facility] Last Admin: 12/18/16 20:42 Dose: 50 mg Sevelamer HCl (Renagel) 1,600 mg PO TID [facility] Last Admin: 12/18/16 17:17 Dose: 1,600 mg - Labs Labs: 12/19/16 06:05 12/19/16 06:05 PT 12.1 Seconds (9.8-13.1) 12/17/16 22:25 INR 1.2 (0.9-1.2) 12/17/16 22:25 APTT 61.1 Seconds (25.6-37.1) H D 12/19/16 07:15 - Constitutional Appears: No Acute Distress - ENT Exam ENT Exam: Mucous Membranes Moist - Respiratory Exam Respiratory Exam: Rhonchi. absent: Chest Wall Tenderness - Cardiovascular Exam Cardiovascular Exam: absent: JVD, Rubs - GI/Abdominal Exam GI & Abdominal Exam: Guarding, Normal Bowel Sounds - Extremities Exam Extremities Exam: absent: Calf Tenderness - Back Exam Back Exam: absent: CVA tenderness (L), CVA tenderness (R) - Neurological Exam Neurological Exam: Alert Assessment and Plan (1) ESRD (end stage renal disease) on dialysis Assessment & Plan: End stage renal disease completed hemodialysis with volume overloaded ascites. Status post paracentesis and removal of 6 L Continue hemodialysis patient need extra hemodialysis treatment perhaps today if possible Cardiac evaluation as noted per cardiology Status: Chronic
--- NOTE | 2016-12-19 14:03 | CP.PCM.PN ---
<Justina Adrian - Last Filed: 12/19/16 14:08> Subjective - Date & Time of Evaluation Date of Evaluation: 12/19/16 Time of Evaluation: 08:00 - Subjective Subjective: S: Patient had been transferred to [facility] for cardiac cath prior to rounds with attending. O: unable to examine pt A: 41 y/o male with ESRD on HD, SLE CHF, admitted for abdominal distention and ascites with elevated troponins. s/p abdominal paracentesis, no SBP, started on heparin drip as per ACS protocol P: Cardiac cath today HD as per nephro plan as ordered case d/w attending. Objective - Vital Signs/Intake and Output Vital Signs (last 24 hours): Temp Pulse Resp BP Pulse Ox 97.9 F 66 18 128/84 98 12/19/16 05:00 12/19/16 05:00 12/19/16 05:00 12/19/16 05:00 12/19/16 05:00 - Medications Medications: Current Medications Aspirin (Aspirin) 325 mg PO DAILY [facility] Last Admin: 12/19/16 06:43 Dose: 325 mg Atorvastatin Calcium (Lipitor) 40 mg PO DAILY@2100 [facility] Last Admin: 12/18/16 20:43 Dose: 40 mg Cinacalcet (Sensipar) 60 mg PO DAILY [facility] Last Admin: 12/18/16 17:17 Dose: 60 mg Heparin Sodium/Dextrose (Heparin 25,000 Units/250ml In D5w) 25,000 units in 250 mls @ 8 mls/hr IV .Q24H [facility] PRN Reason: Protocol Last Admin: 12/18/16 20:52 Dose: 8 mls/hr Levothyroxine Sodium (Synthroid) 25 mcg PO DAILY@0630 [facility] Last Admin: 12/19/16 05:55 Dose: Not Given Metoprolol Tartrate (Lopressor) 50 mg PO Q12 [facility] Last Admin: 12/18/16 20:42 Dose: 50 mg Sevelamer HCl (Renagel) 1,600 mg PO TID [facility] Last Admin: 12/18/16 17:17 Dose: 1,600 mg - Labs Labs: 12/19/16 06:05 12/19/16 06:05 PT 12.1 Seconds (9.8-13.1) 12/17/16 22:25 INR 1.2 (0.9-1.2) 12/17/16 22:25 APTT 61.1 Seconds (25.6-37.1) H D 12/19/16 07:15 <Kayode Yan - Last Filed: 12/26/16 13:41> Objective - Vital Signs/Intake and Output Vital Signs (last 24 hours): Temp Pulse Resp BP Pulse Ox 98.0 F 61 20 113/65 100 12/26/16 12:28 12/26/16 12:28 12/26/16 12:28 12/26/16 12:28 12/26/16 12:28 - Medications Medications: Current Medications Aspirin (Aspirin) 325 mg PO DAILY [facility] Last Admin: 12/26/16 08:55 Dose: 325 mg Atorvastatin Calcium (Lipitor) 40 mg PO DAILY@2100 [facility] Last Admin: 12/25/16 21:32 Dose: 40 mg Cinacalcet (Sensipar) 60 mg PO DAILY [facility] Last Admin: 12/26/16 08:57 Dose: 60 mg Digoxin (Lanoxin) 0.125 mg PO DAILY [facility] Last Admin: 12/26/16 09:20 Dose: 0.125 mg Furosemide (Lasix) 20 mg PO DAILY [facility] Last Admin: 12/26/16 08:56 Dose: Not Given Heparin Sodium (Porcine) (Heparin) 5,000 units SC Q8 [facility] PRN Reason: Protocol Last Admin: 12/26/16 08:56 Dose: 5,000 units Levothyroxine Sodium (Synthroid) 25 mcg PO DAILY@0630 [facility] Last Admin: 12/26/16 06:25 Dose: 25 mcg Lisinopril (Zestril) 2.5 mg PO DAILY [facility] Last Admin: 12/26/16 08:57 Dose: Not Given Metoprolol Tartrate (Lopressor) 50 mg PO Q12 [facility] Last Admin: 12/26/16 08:57 Dose: Not Given Sevelamer HCl (Renagel) 1,600 mg PO TID [facility] Last Admin: 12/26/16 08:55 Dose: 1,600 mg - Labs Labs: 12/25/16 05:45 12/26/16 04:00 PT 11.6 Seconds (9.8-13.1) 12/22/16 08:20 INR 1.1 (0.9-1.2) 12/22/16 08:20 APTT 61.1 Seconds (25.6-37.1) H D 12/19/16 07:15 Assessment and Plan - Assessment and Plan (Free Text) Assessment: Patient was personally seen and examined by me in rounds with residents. Available labs and diagnostic data reviewed. Case, Patient's condition and management plan Discussed with residents in rounds. Agree with resident's progress note. Plan: As ordered.
--- NOTE | 2016-12-19 14:43 | US ---
Date of Procedure: 12/18/2016 PROCEDURE: Ultrasound-guided paracentesis, CPT 93063 Medications: 7 cc 1% Lidocaine HISTORY: Ascites, abdominal pain TECHNIQUE: Following informed consent , the patient was placed supine on the stretcher and the site was marked. A limited abdominal ultrasound was performed that showed a large amount of intra-abdominal fluid. Procedural time out was called and the Pt's abdomen was marked and prepped and draped in the usual sterile fashion. Ultrasound-guided large volume paracentesis performed. A total of 6 liters of slight serosanguinous fluid was removed without complication. IMPRESSION: Ultrasound-guided large volume paracentesis.
--- NOTE | 2016-12-19 15:24 | CP.PCM.PCO ---
Physician Communication Note - Physician Communication Note Physician Communication Note: patient transferred to [place] for cardiac cath. Not seen today
[2016-12-19 20:43] LABS: Interpretation Negative (Negative); Interpretation Positive (Negative)
[2016-12-20] MEDS: Levothyroxine 25 MCG TAB PO SCH (06:12)
--- NOTE | 2016-12-20 09:44 | IP.NPCORE ---
Heart Failure Core Measure - Heart Failure Ejection Fraction: Less Than 40 % MARVIN Inhibitor Prescribed: Yes Beta-Lina Prescribed: Metoprolol Succinate (patient also started on Lasix 20 mg po daily)
--- NOTE | 2016-12-20 12:11 | PN ---
DATE: 12/20/2016 SUBJECTIVE: The patient seen and examined. Interim events noted. Consults noted and appreciated. Cardiology followup and intervention noted and appreciated. The patient had cardiac cath done. Coronaries were unremarkable. The patient has severe congestive heart failure with ejection fraction less than 20%. Case was discussed with cardiology yesterday. The patient feels okay; no chest pain, no shortness of breath. PHYSICAL EXAMINATION: GENERAL: The patient is in no acute distress. VITAL SIGNS: Stable. HEART: S1 and S2 normal, regular. LUNGS: Good bilateral air exchange. ABDOMEN: The patient had . Abdomen is mostly less distended. Abdomen is non-acute. No guarding. No rigidity. No rebound. Bowel sounds are present, normal. EXTREMITIES: No edema. No calf swelling or tenderness. No acute ischemia. CENTRAL NERVOUS SYSTEM: Essentially unchanged. DIAGNOSTIC DATA: Available diagnostic data reviewed. Telemetry monitoring does not show significant arrhythmias. Currently, the patient's general medical condition is stable. Long-term prognosis is poor. Case and plan discussed with the patient. Kayode Yan MD
--- NOTE | 2016-12-20 15:17 | CP.PCM.PN ---
Subjective - Date & Time of Evaluation Date of Evaluation: 12/20/16 Time of Evaluation: 15:15 - Subjective Subjective: He was seen on hemodialysis patient is awake and conscious No chest pain reported is feeling much better Objective - Vital Signs/Intake and Output Vital Signs (last 24 hours): Temp Pulse Resp BP Pulse Ox 98.2 F 68 18 113/69 100 12/20/16 12:26 12/20/16 12:26 12/20/16 12:26 12/20/16 12:26 12/20/16 12:26 - Medications Medications: Current Medications Aspirin (Aspirin) 325 mg PO DAILY [facility] Last Admin: 12/19/16 16:37 Dose: Not Given Atorvastatin Calcium (Lipitor) 40 mg PO DAILY@2100 [facility] Last Admin: 12/19/16 21:48 Dose: 40 mg Cinacalcet (Sensipar) 60 mg PO DAILY [facility] Last Admin: 12/19/16 09:00 Dose: Not Given Furosemide (Lasix) 20 mg PO DAILY [facility] Heparin Sodium (Porcine) (Heparin) 5,000 units SC Q8 [facility] PRN Reason: Protocol Last Admin: 12/20/16 10:26 Dose: 5,000 units Levothyroxine Sodium (Synthroid) 25 mcg PO DAILY@0630 [facility] Last Admin: 12/20/16 06:12 Dose: 25 mcg Lisinopril (Zestril) 2.5 mg PO DAILY [facility] Metoprolol Tartrate (Lopressor) 50 mg PO Q12 [facility] Last Admin: 12/20/16 09:59 Dose: Not Given Sevelamer HCl (Renagel) 1,600 mg PO TID [facility] Last Admin: 12/20/16 12:41 Dose: Not Given - Labs Labs: 12/19/16 06:05 12/19/16 06:05 PT 12.6 Seconds (9.8-13.1) 12/20/16 08:30 INR 1.2 (0.9-1.2) 12/20/16 08:30 APTT 61.1 Seconds (25.6-37.1) H D 12/19/16 07:15 - Constitutional Appears: No Acute Distress - ENT Exam ENT Exam: Mucous Membranes Moist - Respiratory Exam Respiratory Exam: absent: Chest Wall Tenderness - Cardiovascular Exam Cardiovascular Exam: absent: JVD, Rubs - GI/Abdominal Exam GI & Abdominal Exam: Normal Bowel Sounds. absent: Distended - Extremities Exam Extremities Exam: absent: Calf Tenderness - Back Exam Back Exam: absent: CVA tenderness (L), CVA tenderness (R) - Neurological Exam Neurological Exam: Alert Assessment and Plan (1) ESRD (end stage renal disease) on dialysis Assessment & Plan: Patient about to complete hemodialysis with ultrafiltration 1800 mL Patient develop cramping on dialysis Status post cardiac cath yesterday I am told no stenting needed Status post paracentesis was removal of 6 L of fluid Continue to improve Status: Chronic
--- NOTE | 2016-12-20 16:45 | US ---
HISTORY: Portal veins/hepatic vein thrombosis suspected. Relevant interventional procedure(s): December 18, 2016. Paracentesis with recovery of 6 L of ascitic fluid. COMPARISON: 12/17/2016 CT abdomen and pelvis. TECHNIQUE: Sonographic evaluation of the abdomen. FINDINGS: LIVER: Measures 15.4 cm. Patent portal vein. Portal venous flow: Hepatopetal. Unremarkeable echogenicity of the liver parenchyma. No mass. No intrahepatic bile duct dilatation. No evidence of either portal vein or hepatic vein thrombosis. GALLBLADDER: Gallbladder wall thickening, otherwise unremarkable. No stones identified. COMMON BILE DUCT: Measures 4.9 mm. No stones. No dilatation. PANCREAS: Unremarkable as visualized. No mass. No ductal dilatation. RIGHT KIDNEY: Measures 3.8 x 9.6cm. Normal echogenicity. No calculus, mass, or hydronephrosis.Incidental finding(s): Simple cyst 1.9 x 2 cm lower pole right kidney LEFT KIDNEY: Obscured by overlying bowel gas. Non diagnostic assessment of left kidney SPLEEN: Normal in size and contour. No mass. AORTA: No aneurysmal dilatation. IVC: Unremarkable. OTHER FINDINGS: Low volume ascites status post paracentesis. IMPRESSION: Negative study for portal vein or hepatic vein thrombosis. Additional benign and/or incidental findings described above.
[2016-12-20] MEDS: Cinacalcet 60 MG TAB PO SCH (17:20)
--- NOTE | 2016-12-21 00:33 | CP.PCM.PN ---
Subjective - Date & Time of Evaluation Date of Evaluation: 12/20/16 Time of Evaluation: 12:45 - Subjective Subjective: feeling fine getting HD with removal of 2.5 liters of fluid s/p CHCx. showing non-obstructive CAD and mild pulmonary HTN with elevated filling pressures Objective - Vital Signs/Intake and Output Vital Signs (last 24 hours): Temp Pulse Resp BP Pulse Ox 97.6 F 65 19 116/72 99 12/21/16 00:14 12/21/16 00:14 12/21/16 00:14 12/21/16 00:14 12/21/16 00:14 Intake and Output: 12/20/16 12/21/16 18:59 06:59 Intake Total 860 Balance 860 - Medications Medications: Current Medications Aspirin (Aspirin) 325 mg PO DAILY [facility] Last Admin: 12/20/16 17:18 Dose: 325 mg Atorvastatin Calcium (Lipitor) 40 mg PO DAILY@2100 [facility] Last Admin: 12/20/16 21:39 Dose: 40 mg Cinacalcet (Sensipar) 60 mg PO DAILY [facility] Last Admin: 12/20/16 17:20 Dose: 60 mg Furosemide (Lasix) 20 mg PO DAILY [facility] Last Admin: 12/20/16 17:18 Dose: 20 mg Heparin Sodium (Porcine) (Heparin) 5,000 units SC Q8 [facility] PRN Reason: Protocol Last Admin: 12/20/16 17:26 Dose: 5,000 units Levothyroxine Sodium (Synthroid) 25 mcg PO DAILY@0630 [facility] Last Admin: 12/20/16 06:12 Dose: 25 mcg Lisinopril (Zestril) 2.5 mg PO DAILY [facility] Last Admin: 12/20/16 17:21 Dose: 2.5 mg Metoprolol Tartrate (Lopressor) 50 mg PO Q12 [facility] Last Admin: 12/20/16 21:39 Dose: 50 mg Sevelamer HCl (Renagel) 1,600 mg PO TID [facility] Last Admin: 12/20/16 17:19 Dose: 1,600 mg - Labs Labs: 12/19/16 06:05 12/19/16 06:05 PT 12.6 Seconds (9.8-13.1) 12/20/16 08:30 INR 1.2 (0.9-1.2) 12/20/16 08:30 APTT 61.1 Seconds (25.6-37.1) H D 12/19/16 07:15 - Constitutional Appears: Well - Head Exam Head Exam: ATRAUMATIC, NORMAL INSPECTION, NORMOCEPHALIC - Eye Exam Eye Exam: EOMI, Normal appearance, PERRL Pupil Exam: NORMAL ACCOMODATION, PERRL - ENT Exam ENT Exam: Mucous Membranes Moist, Normal Exam - Neck Exam Neck Exam: Full ROM, Normal Inspection. absent: Lymphadenopathy - Respiratory Exam Respiratory Exam: Clear to Ausculation Bilateral, Rales - Cardiovascular Exam Cardiovascular Exam: REGULAR RHYTHM, +S1, +S2, Murmur - GI/Abdominal Exam GI & Abdominal Exam: Soft, Normal Bowel Sounds. absent: Tenderness - Extremities Exam Extremities Exam: Full ROM, Normal Capillary Refill, Normal Inspection. 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
[2016-12-21 05:43] LABS: HEMATOCRIT 36.4 % (35.0-51.0); MEAN CELL VOLUME 100.2 fl (80.0-94.0); MEAN CORPUSCULAR HEMOGLOBIN 31.8 pg (27.0-31.0); MEAN CORPUSCULAR HGB CONC 31.7 g/dL (33.0-37.0); RED CELL DISTRIBUTION WIDTH 16.5 % (11.5-14.5); WHITE BLOOD COUNT 4.3 K/uL (4.8-10.8)
[2016-12-21 05:48] LABS: ALB/GLOB RATIO 1.1 (1.0-2.1); BILIRUBIN,TOTAL 1.4 mg/dl (0.2-1.3); CALCIUM 7.6 mg/dL (8.4-10.2); POTASSIUM 4.7 MMOL/L (3.6-5.0); TOTAL PROTEIN 6.2 G/DL (6.3-8.2)
[2016-12-21] MEDS: Levothyroxine 25 MCG TAB PO SCH (06:42)
--- NOTE | 2016-12-21 09:32 | CP.PCM.PN ---
<Abiodun Morataya - Last Filed: 12/21/16 09:32> Subjective - Date & Time of Evaluation Date of Evaluation: 12/21/16 Time of Evaluation: 07:15 - Subjective Subjective: PGY4 GI Follow-up Pt seen and examined bedside No new complaints Denies any abd pain Tolerating diet Reg BM ROS: 10 point ROS was neg other than above Objective - Vital Signs/Intake and Output Vital Signs (last 24 hours): Temp Pulse Resp BP Pulse Ox 97.3 F L 71 18 107/66 99 12/21/16 08:00 12/21/16 08:00 12/21/16 08:00 12/21/16 08:00 12/21/16 08:00 Intake and Output: 12/21/16 12/21/16 06:59 18:59 Intake Total 300 Output Total 350 Balance -50 - Medications Medications: Current Medications Aspirin (Aspirin) 325 mg PO DAILY [facility] Last Admin: 12/20/16 17:18 Dose: 325 mg Atorvastatin Calcium (Lipitor) 40 mg PO DAILY@2100 [facility] Last Admin: 12/20/16 21:39 Dose: 40 mg Cinacalcet (Sensipar) 60 mg PO DAILY [facility] Last Admin: 12/20/16 17:20 Dose: 60 mg Furosemide (Lasix) 20 mg PO DAILY [facility] Last Admin: 12/20/16 17:18 Dose: 20 mg Heparin Sodium (Porcine) (Heparin) 5,000 units SC Q8 [facility] PRN Reason: Protocol Last Admin: 12/21/16 01:30 Dose: 5,000 units Levothyroxine Sodium (Synthroid) 25 mcg PO DAILY@0630 [facility] Last Admin: 12/21/16 06:42 Dose: 25 mcg Lisinopril (Zestril) 2.5 mg PO DAILY [facility] Last Admin: 12/20/16 17:21 Dose: 2.5 mg Metoprolol Tartrate (Lopressor) 50 mg PO Q12 [facility] Last Admin: 12/20/16 21:39 Dose: 50 mg Sevelamer HCl (Renagel) 1,600 mg PO TID [facility] Last Admin: 12/20/16 17:19 Dose: 1,600 mg - Labs Labs: 12/21/16 04:45 12/21/16 04:45 PT 12.6 Seconds (9.8-13.1) 12/20/16 08:30 INR 1.2 (0.9-1.2) 12/20/16 08:30 APTT 61.1 Seconds (25.6-37.1) H D 12/19/16 07:15 - Constitutional Appears: Well, No Acute Distress - Head Exam Head Exam: ATRAUMATIC, NORMOCEPHALIC - Eye Exam Eye Exam: Normal appearance - ENT Exam ENT Exam: Mucous Membranes Moist, Normal Exam - Respiratory Exam Respiratory Exam: Clear to Ausculation Bilateral, NORMAL BREATHING PATTERN. absent: Rales, Rhonchi, Wheezes - Cardiovascular Exam Cardiovascular Exam: REGULAR RHYTHM, +S1, +S2. absent: Murmur - GI/Abdominal Exam GI & Abdominal Exam: Soft, Normal Bowel Sounds. absent: Firm, Guarding, Rigid, Tenderness - Extremities Exam Extremities Exam: absent: Joint Swelling, Pedal Edema - Neurological Exam Neurological Exam: Alert, Awake, Oriented x3 - Psychiatric Exam Psychiatric exam: Normal Affect, Normal Mood - Skin Skin Exam: Dry, Intact, Normal Color, Warm Assessment and Plan - Assessment and Plan (Free Text) Assessment: Luke Trejo is a 41M w/ hx of ESRD and lupus who presents with abd distention. Etiology is likely due to renal failure vs heart failure, r/o portal HTN 2/2 liver disease 1. Ascities, likely renal vs cardiac 2. Fluid overload 3. ESRD 2/2 unknown etiology 4. Non-ischemic cardiomyopathy Plan: -s/p 6 L paracentesis, cannot calculate SAAG at this time due to pending fluid alb, PMN < 250 therefore unlikely SBP -etiology is likely 2/2 CHF and ESRD - continue dialysis as per nephro - CHF tx as per cardiac - Continue PO lasix and consider adding aldactone as BP tolerates - No further recommendations as per GI -Will Sign off, pls reconsult if further assistance is needed Will D/W Dr. Santillan <[facility]ARDWhite [facility] Centerromi - Last Filed: 12/21/16 13:12> Objective - Vital Signs/Intake and Output Vital Signs (last 24 hours): Temp Pulse Resp BP Pulse Ox 98.4 F 72 18 97/62 L 97 12/21/16 12:06 12/21/16 12:06 12/21/16 12:06 12/21/16 12:06 12/21/16 12:06 Intake and Output: 12/21/16 12/21/16 06:59 18:59 Intake Total 300 Output Total 350 Balance -50 - Medications Medications: Current Medications Aspirin (Aspirin) 325 mg PO DAILY [facility] Last Admin: 12/21/16 10:05 Dose: 325 mg Atorvastatin Calcium (Lipitor) 40 mg PO DAILY@2100 [facility] Last Admin: 12/20/16 21:39 Dose: 40 mg Cinacalcet (Sensipar) 60 mg PO DAILY [facility] Last Admin: 12/21/16 09:57 Dose: 60 mg Furosemide (Lasix) 20 mg PO DAILY [facility] Last Admin: 12/20/16 17:18 Dose: 20 mg Heparin Sodium (Porcine) (Heparin) 5,000 units SC Q8 [facility] PRN Reason: Protocol Last Admin: 12/21/16 09:54 Dose: 5,000 units Levothyroxine Sodium (Synthroid) 25 mcg PO DAILY@0630 [facility] Last Admin: 12/21/16 06:42 Dose: 25 mcg Lisinopril (Zestril) 2.5 mg PO DAILY [facility] Last Admin: 12/20/16 17:21 Dose: 2.5 mg Metoprolol Tartrate (Lopressor) 50 mg PO Q12 [facility] Last Admin: 12/21/16 09:55 Dose: Not Given Sevelamer HCl (Renagel) 1,600 mg PO TID [facility] Last Admin: 12/21/16 13:00 Dose: 1,600 mg - Labs Labs: 12/21/16 04:45 12/21/16 04:45 PT 12.5 Seconds (9.8-13.1) 12/21/16 09:15 INR 1.2 (0.9-1.2) 12/21/16 09:15 APTT 61.1 Seconds (25.6-37.1) H D 12/19/16 07:15 Attending/Attestation - Attestation I have personally seen and examined this patient.: Yes I have fully participated in the care of the patient.: Yes I have reviewed all pertinent clinical information, including history, physical exam and plan: Yes Notes (Text): 12/21/16 13:10 Patient seen with GI fellow on rounds this am. This is a 41 yr old M w/ hx of ESRD and lupus who presents with abdominal distention in setting of ascites s/p 6 lts therapeutic tap with no s/s of SBP. Etiology is likely due to renal failure vs heart failure, r/o portal HTN 2/2 liver disease. Hepatitis and autoimmune serologies are negative. Continue diuretics. Rest of plan as per nephrology. Will sign off. Thank you for letting us participate in the care of your patients
[2016-12-21] MEDS: Cinacalcet 60 MG TAB PO SCH (09:57)
--- NOTE | 2016-12-21 10:36 | CP.PCM.PN ---
Subjective - Date & Time of Evaluation Date of Evaluation: 12/21/16 Time of Evaluation: 10:26 - Subjective Subjective: Patient and bed appeared to be comfortable no shortness of breath No nausea no vomiting abdomen is soft Objective - Vital Signs/Intake and Output Vital Signs (last 24 hours): Temp Pulse Resp BP Pulse Ox 97.3 F L 70 18 107/66 99 12/21/16 08:00 12/21/16 09:55 12/21/16 08:00 12/21/16 09:55 12/21/16 08:00 Intake and Output: 12/21/16 12/21/16 06:59 18:59 Intake Total 300 Output Total 350 Balance -50 - Medications Medications: Current Medications Aspirin (Aspirin) 325 mg PO DAILY [facility] Last Admin: 12/21/16 10:05 Dose: 325 mg Atorvastatin Calcium (Lipitor) 40 mg PO DAILY@2100 [facility] Last Admin: 12/20/16 21:39 Dose: 40 mg Cinacalcet (Sensipar) 60 mg PO DAILY [facility] Last Admin: 12/21/16 09:57 Dose: 60 mg Furosemide (Lasix) 20 mg PO DAILY [facility] Last Admin: 12/20/16 17:18 Dose: 20 mg Heparin Sodium (Porcine) (Heparin) 5,000 units SC Q8 [facility] PRN Reason: Protocol Last Admin: 12/21/16 09:54 Dose: 5,000 units Levothyroxine Sodium (Synthroid) 25 mcg PO DAILY@0630 [facility] Last Admin: 12/21/16 06:42 Dose: 25 mcg Lisinopril (Zestril) 2.5 mg PO DAILY [facility] Last Admin: 12/20/16 17:21 Dose: 2.5 mg Metoprolol Tartrate (Lopressor) 50 mg PO Q12 [facility] Last Admin: 12/21/16 09:55 Dose: Not Given Sevelamer HCl (Renagel) 1,600 mg PO TID [facility] Last Admin: 12/21/16 09:56 Dose: 1,600 mg - Labs Labs: 12/21/16 04:45 12/21/16 04:45 PT 12.5 Seconds (9.8-13.1) 12/21/16 09:15 INR 1.2 (0.9-1.2) 12/21/16 09:15 APTT 61.1 Seconds (25.6-37.1) H D 09/12/17 07:15 - Constitutional Appears: No Acute Distress - ENT Exam ENT Exam: Mucous Membranes Moist - Respiratory Exam Respiratory Exam: absent: Chest Wall Tenderness - Cardiovascular Exam Cardiovascular Exam: REGULAR RHYTHM. absent: JVD, Rubs - GI/Abdominal Exam GI & Abdominal Exam: Normal Bowel Sounds - Extremities Exam Extremities Exam: absent: Calf Tenderness - Back Exam Back Exam: absent: CVA tenderness (L), CVA tenderness (R) - Neurological Exam Neurological Exam: Alert Assessment and Plan (1) ESRD (end stage renal disease) on dialysis Assessment & Plan: End stage renal disease Hemodialysis as scheduled Status post paracentesis 6 L Status post cardiac catheterization Continue monitoring Status: Chronic
--- NOTE | 2016-12-21 22:44 | CP.PCM.PN ---
Subjective - Date & Time of Evaluation Date of Evaluation: 12/21/16 Time of Evaluation: 16:30 - Subjective Subjective: feeling better today on HD with removal of 2.5 liters of fluid denies any complaints Objective - Vital Signs/Intake and Output Vital Signs (last 24 hours): Temp Pulse Resp BP Pulse Ox 97.3 F L 72 20 114/71 100 12/21/16 18:48 12/21/16 20:54 12/21/16 18:48 12/21/16 20:54 12/21/16 18:48 Intake and Output: 12/21/16 12/22/16 18:59 06:59 Intake Total 860 Balance 860 - Medications Medications: Current Medications Aspirin (Aspirin) 325 mg PO DAILY [facility] Last Admin: 12/21/16 10:05 Dose: 325 mg Atorvastatin Calcium (Lipitor) 40 mg PO DAILY@2100 [facility] Last Admin: 12/21/16 20:54 Dose: 40 mg Cinacalcet (Sensipar) 60 mg PO DAILY [facility] Last Admin: 12/21/16 09:57 Dose: 60 mg Furosemide (Lasix) 20 mg PO DAILY [facility] Last Admin: 12/21/16 17:39 Dose: 20 mg Heparin Sodium (Porcine) (Heparin) 5,000 units SC Q8 [facility] PRN Reason: Protocol Last Admin: 12/21/16 17:36 Dose: 5,000 units Levothyroxine Sodium (Synthroid) 25 mcg PO DAILY@0630 [facility] Last Admin: 12/21/16 06:42 Dose: 25 mcg Lisinopril (Zestril) 2.5 mg PO DAILY [facility] Last Admin: 12/21/16 17:40 Dose: 2.5 mg Metoprolol Tartrate (Lopressor) 50 mg PO Q12 [facility] Last Admin: 12/21/16 20:54 Dose: 50 mg Sevelamer HCl (Renagel) 1,600 mg PO TID [facility] Last Admin: 12/21/16 17:40 Dose: 1,600 mg - Labs Labs: 12/21/16 04:45 12/21/16 04:45 PT 12.5 Seconds (9.8-13.1) 12/21/16 09:15 INR 1.2 (0.9-1.2) 12/21/16 09:15 APTT 61.1 Seconds (25.6-37.1) H D 12/19/16 07:15 - Constitutional Appears: Well - Head Exam Head Exam: ATRAUMATIC, NORMAL INSPECTION, NORMOCEPHALIC - Eye Exam Eye Exam: EOMI, Normal appearance, PERRL Pupil Exam: NORMAL ACCOMODATION, PERRL - ENT Exam ENT Exam: Mucous Membranes Moist, Normal Exam - Neck Exam Neck Exam: Full ROM, Normal Inspection. absent: Lymphadenopathy - Respiratory Exam Respiratory Exam: Clear to Ausculation Bilateral, NORMAL BREATHING PATTERN - Cardiovascular Exam Cardiovascular Exam: REGULAR RHYTHM, +S1, +S2, Murmur - GI/Abdominal Exam GI & Abdominal Exam: Soft, Normal Bowel Sounds. absent: Tenderness - Extremities Exam Extremities Exam: Full ROM, Normal Capillary Refill, Normal Inspection. absent : Joint Swelling, Pedal Edema - Back Exam Back Exam: NORMAL INSPECTION - Neurological Exam Neurological Exam: Alert, Awake, CN II-XII Intact, Oriented x3 - Psychiatric Exam Psychiatric exam: Normal Affect, Normal Mood - Skin Skin Exam: Dry, Intact, Normal Color, Warm Assessment and Plan (1) Troponin level elevated Assessment & Plan: 2' to CHF exacerbation s/p LHCx showing non-obstructive CAD Status: Acute (2) CHF (congestive heart failure), NYHA class IV Assessment & Plan: Mild pulmonary HTN on HD tolerating BB and ACEi added low dose aldactone today Status: Acute (3) ESRD (end stage renal disease) on dialysis Status: Chronic (4) Lupus (systemic lupus erythematosus) Status: Acute
[2016-12-22] MEDS: Levothyroxine 25 MCG TAB PO SCH (06:01)
[2016-12-22 06:47] LABS: HEMATOCRIT 33.9 % (35.0-51.0); MEAN CELL VOLUME 99.6 fl (80.0-94.0); MEAN CORPUSCULAR HEMOGLOBIN 32.3 pg (27.0-31.0); MEAN CORPUSCULAR HGB CONC 32.4 g/dL (33.0-37.0); RED CELL DISTRIBUTION WIDTH 16.2 % (11.5-14.5); WHITE BLOOD COUNT 4.2 K/uL (4.8-10.8)
[2016-12-22 07:53] LABS: ALB/GLOB RATIO 0.9 (1.0-2.1); BILIRUBIN,TOTAL 1.2 mg/dl (0.2-1.3); CALCIUM 7.5 mg/dL (8.4-10.2); POTASSIUM 4.5 MMOL/L (3.6-5.0)
--- NOTE | 2016-12-22 08:25 | PN ---
DATE: 12/21/2016 SUBJECTIVE: The patient was seen and examined. Interim events noted. Consults noted and appreciated. Cardiology, Nephrology followup and intervention noted and appreciated. The patient remains in progressive care unit on telemetry monitoring. The patient feels okay. No chest pain and no shortness of breath. Abdominal pain, he is adequately controlled and much improved. PHYSICAL EXAMINATION GENERAL: The patient is in no acute distress. VITAL SIGNS: Stable. HEART: S1 and S2 normal, regular. LUNGS: Good bilateral air exchange. ABDOMEN: Soft and nontender. Still has some ascitic fluid, but much improved after paracentesis. No sign of acute abdomen. No guarding. No rigidity. No rebound. Bowel sounds are present and normal. EXTREMITIES: No edema. No calf swelling. No tenderness. No acute ischemia. CENTRAL NERVOUS SYSTEMS: Essentially unchanged. DIAGNOSTIC DATA: Available diagnostic data reviewed. IMPRESSION: Overall, the patient is fairly improving. Telemetry monitoring does not revealed significant arrhythmia. PLAN: As ordered. Kayode Yan MD
[2016-12-22] MEDS: Cinacalcet 60 MG TAB PO SCH (09:32)
--- NOTE | 2016-12-22 15:31 | CP.PCM.PN ---
Subjective - Date & Time of Evaluation Date of Evaluation: 12/22/16 Time of Evaluation: 15:29 - Subjective Subjective: Patient and bed he appears to be comfortable no shortness of breath Patient is walking around Vital sign noted to have low blood pressure as noted Objective - Vital Signs/Intake and Output Vital Signs (last 24 hours): Temp Pulse Resp BP Pulse Ox 98 F 69 20 99/47 L 97 12/22/16 13:00 12/22/16 13:00 12/22/16 13:00 12/22/16 13:00 12/22/16 13:00 - Medications Medications: Current Medications Aspirin (Aspirin) 325 mg PO DAILY [facility] Last Admin: 12/22/16 09:36 Dose: 325 mg Atorvastatin Calcium (Lipitor) 40 mg PO DAILY@2100 [facility] Last Admin: 12/21/16 20:54 Dose: 40 mg Cinacalcet (Sensipar) 60 mg PO DAILY [facility] Last Admin: 12/22/16 09:32 Dose: 60 mg Furosemide (Lasix) 20 mg PO DAILY [facility] Last Admin: 12/22/16 09:32 Dose: 20 mg Heparin Sodium (Porcine) (Heparin) 5,000 units SC Q8 [facility] PRN Reason: Protocol Last Admin: 12/22/16 09:32 Dose: 5,000 units Levothyroxine Sodium (Synthroid) 25 mcg PO DAILY@0630 [facility] Last Admin: 12/22/16 06:01 Dose: 25 mcg Lisinopril (Zestril) 2.5 mg PO DAILY [facility] Last Admin: 12/22/16 09:31 Dose: 2.5 mg Metoprolol Tartrate (Lopressor) 50 mg PO Q12 [facility] Last Admin: 12/22/16 09:31 Dose: 50 mg Sevelamer HCl (Renagel) 1,600 mg PO TID [facility] Last Admin: 12/22/16 12:48 Dose: 1,600 mg Spironolactone (Aldactone) 12.5 mg PO DAILY [facility] Last Admin: 12/22/16 09:51 Dose: 12.5 mg - Labs Labs: 12/22/16 05:45 12/22/16 05:45 PT 11.6 Seconds (9.8-13.1) 12/22/16 08:20 INR 1.1 (0.9-1.2) 12/22/16 08:20 APTT 61.1 Seconds (25.6-37.1) H D 12/19/16 07:15 - Eye Exam Eye Exam: Normal appearance - ENT Exam ENT Exam: Mucous Membranes Moist - Cardiovascular Exam Cardiovascular Exam: REGULAR RHYTHM. absent: Rubs - Extremities Exam Extremities Exam: absent: Calf Tenderness - Back Exam Back Exam: absent: CVA tenderness (L), CVA tenderness (R) - Neurological Exam Neurological Exam: Alert Assessment and Plan (1) ESRD (end stage renal disease) on dialysis Assessment & Plan: End stage renal disease patient requiring dialysis TTS Status post paracentesis At this post cardiac cath However today proBNP very high 220,000 Cardiology to reevaluate It is very hard to give extra dialysis with this low blood pressure Status: Chronic
--- NOTE | 2016-12-22 17:18 | PN ---
DATE: 12/22/2016 SUBJECTIVE: The patient seen and examined. Interim events noted. Consults noted and appreciated. Cardiology followup, Gastroenterology followup and Nephrology followup noted and appreciated. The patient remains in progressive care unit on telemetry monitoring. Feels better. Denies any specific complaint. No chest pain. No shortness of breath. PHYSICAL EXAMINATION: GENERAL: The patient is in no acute distress. VITAL SIGNS: Stable. HEART: S1 and S2, normal and regular. LUNGS: Good bilateral air exchange. ABDOMEN: Soft and nontender. Abdominal exam does demonstrate ascitic fluid, which improved after paracentesis. EXTREMITIES: No edema. No calf swelling. No tenderness. No acute ischemia. CENTRAL NERVOUS SYSTEMS: Essentially unchanged. LABORATORY DATA: Available diagnostic data reviewed. ASSESSMENT AND PLAN: The patient's general medical condition is stable. We will discharge the patient home if cleared by Cardiology and other consultants. Case and plan was discussed with the patient. The patient will be followed up by Cardiology, Nephrology and primary care physician, . PLAN: Case and plan was explained to the patient in detail. Kayode Yan MD
--- NOTE | 2016-12-22 20:20 | CP.PCM.PN ---
Subjective - Date & Time of Evaluation Date of Evaluation: 12/22/16 Time of Evaluation: 16:00 - Subjective Subjective: feeling fine NT-pro BNP seveerely elevated clinically feeling better Objective - Vital Signs/Intake and Output Vital Signs (last 24 hours): Temp Pulse Resp BP Pulse Ox 97.6 F 65 20 105/68 100 12/22/16 19:14 12/22/16 19:14 12/22/16 19:14 12/22/16 19:14 12/22/16 19:14 - Medications Medications: Current Medications Aspirin (Aspirin) 325 mg PO DAILY [facility] Last Admin: 12/22/16 09:36 Dose: 325 mg Atorvastatin Calcium (Lipitor) 40 mg PO DAILY@2100 [facility] Last Admin: 12/21/16 20:54 Dose: 40 mg Cinacalcet (Sensipar) 60 mg PO DAILY [facility] Last Admin: 12/22/16 09:32 Dose: 60 mg Furosemide (Lasix) 20 mg PO DAILY [facility] Last Admin: 12/22/16 09:32 Dose: 20 mg Heparin Sodium (Porcine) (Heparin) 5,000 units SC Q8 [facility] PRN Reason: Protocol Last Admin: 12/22/16 16:35 Dose: 5,000 units Levothyroxine Sodium (Synthroid) 25 mcg PO DAILY@0630 [facility] Last Admin: 12/22/16 06:01 Dose: 25 mcg Lisinopril (Zestril) 2.5 mg PO DAILY [facility] Last Admin: 12/22/16 09:31 Dose: 2.5 mg Metoprolol Tartrate (Lopressor) 50 mg PO Q12 [facility] Last Admin: 12/22/16 09:31 Dose: 50 mg Sevelamer HCl (Renagel) 1,600 mg PO TID [facility] Last Admin: 12/22/16 16:36 Dose: 1,600 mg Spironolactone (Aldactone) 12.5 mg PO DAILY [facility] Last Admin: 12/22/16 09:51 Dose: 12.5 mg - Labs Labs: 12/22/16 05:45 12/22/16 05:45 PT 11.6 Seconds (9.8-13.1) 12/22/16 08:20 INR 1.1 (0.9-1.2) 12/22/16 08:20 APTT 61.1 Seconds (25.6-37.1) H D 12/19/16 07:15 - Constitutional Appears: Well - Head Exam Head Exam: ATRAUMATIC, NORMAL INSPECTION, NORMOCEPHALIC - Eye Exam Eye Exam: EOMI, Normal appearance, PERRL Pupil Exam: NORMAL ACCOMODATION, PERRL - ENT Exam ENT Exam: Mucous Membranes Moist, Normal Exam - Neck Exam Neck Exam: Full ROM, Normal Inspection. absent: Lymphadenopathy - Respiratory Exam Respiratory Exam: Rales, NORMAL BREATHING PATTERN - Cardiovascular Exam Cardiovascular Exam: REGULAR RHYTHM, +S1, +S2, Murmur - GI/Abdominal Exam GI & Abdominal Exam: Soft, Normal Bowel Sounds. absent: Tenderness - Extremities Exam Extremities Exam: Full ROM, Normal Capillary Refill, Normal Inspection. absent : Joint Swelling, Pedal Edema - Back Exam Back Exam: NORMAL INSPECTION - Neurological Exam Neurological Exam: Alert, Awake, CN II-XII Intact, Oriented x3 - Psychiatric Exam Psychiatric exam: Normal Affect, Normal Mood - Skin Skin Exam: Dry, Intact, Normal Color, Warm Assessment and Plan (1) CHF (congestive heart failure), NYHA class IV Assessment & Plan: Severely elevated NT-proBNP on BB, acei and aldactone will add digoxin 0.125 mg daily Status: Acute (2) ESRD (end stage renal disease) on dialysis Assessment & Plan: continue fluid removal with HD Status: Chronic (3) Lupus (systemic lupus erythematosus) Status: Acute
[2016-12-22] MEDS ORDERED: Digoxin 125 mcg (0.125 mg) Tab PO STA (20:22)
[2016-12-23] MEDS: Levothyroxine 25 MCG TAB PO SCH (05:39)
[2016-12-23] MEDS: Cinacalcet 60 MG TAB PO SCH (08:38)
--- NOTE | 2016-12-23 19:37 | PN ---
DATE: 12/23/2016 SUBJECTIVE: The patient seen and examined. Interim events noted. Consults noted and appreciated. Nephrology and Cardiology followup interventions noted and appreciated. The patient remains in progressive care unit on telemetry monitoring. Feels okay. Denies any chest pain or shortness of breath. Abdominal distention is much improved. PHYSICAL EXAMINATION: GENERAL: The patient is in no acute distress. VITAL SIGNS: Stable. HEART: S1 and S2, normal and regular. LUNGS: Good bilateral air exchange. ABDOMEN: The patient still has ascites, but no sign of acute abdomen. No guarding. No rigidity. No rebound. Bowel sounds are present and normal. EXTREMITIES: No edema. No calf swelling. No tenderness. No acute ischemia. CENTRAL NERVOUS SYSTEMS: Essentially unchanged. DIAGNOSTIC DATA: Available diagnostic data reviewed. Telemetry monitoring does not revealed significant arrhythmia. ASSESSMENT: Overall, the patient's general medical condition is stable. The patient and discharge was held. PLAN: As ordered. Case and plan was discussed with the patient. Kayode Yan MD
--- NOTE | 2016-12-23 23:07 | CP.PCM.PN ---
Subjective - Date & Time of Evaluation Date of Evaluation: 12/23/16 Time of Evaluation: 14:00 - Subjective Subjective: no events overnight Objective - Vital Signs/Intake and Output Vital Signs (last 24 hours): Temp Pulse Resp BP Pulse Ox 97.9 F 72 20 121/78 100 12/23/16 19:35 12/23/16 21:24 12/23/16 19:35 12/23/16 21:24 12/23/16 19:35 Intake and Output: 12/23/16 12/24/16 18:59 06:59 Intake Total 620 Output Total 2500 Balance -1880 - Medications Medications: Current Medications Aspirin (Aspirin) 325 mg PO DAILY [facility] Last Admin: 12/23/16 08:41 Dose: 325 mg Atorvastatin Calcium (Lipitor) 40 mg PO DAILY@2100 [facility] Last Admin: 12/23/16 21:25 Dose: 40 mg Cinacalcet (Sensipar) 60 mg PO DAILY [facility] Last Admin: 12/23/16 08:38 Dose: 60 mg Furosemide (Lasix) 20 mg PO DAILY [facility] Last Admin: 12/23/16 08:39 Dose: Not Given Heparin Sodium (Porcine) (Heparin) 5,000 units SC Q8 [facility] PRN Reason: Protocol Last Admin: 12/23/16 17:08 Dose: 5,000 units Levothyroxine Sodium (Synthroid) 25 mcg PO DAILY@0630 [facility] Last Admin: 12/23/16 05:39 Dose: 25 mcg Lisinopril (Zestril) 2.5 mg PO DAILY [facility] Last Admin: 12/23/16 08:37 Dose: Not Given Metoprolol Tartrate (Lopressor) 50 mg PO Q12 [facility] Last Admin: 12/23/16 21:24 Dose: 50 mg Sevelamer HCl (Renagel) 1,600 mg PO TID [facility] Last Admin: 12/23/16 17:08 Dose: 1,600 mg Spironolactone (Aldactone) 12.5 mg PO DAILY [facility] Last Admin: 12/23/16 08:38 Dose: Not Given - Labs Labs: 12/22/16 05:45 12/22/16 05:45 PT 11.6 Seconds (9.8-13.1) 12/22/16 08:20 INR 1.1 (0.9-1.2) 12/22/16 08:20 APTT 61.1 Seconds (25.6-37.1) H D 12/19/16 07:15 - Constitutional Appears: Non-toxic, No Acute Distress - Head Exam Head Exam: NORMAL INSPECTION - Eye Exam Eye Exam: Normal appearance - ENT Exam ENT Exam: Mucous Membranes Moist - Respiratory Exam Respiratory Exam: NORMAL BREATHING PATTERN - Cardiovascular Exam Cardiovascular Exam: +S1, +S2 - GI/Abdominal Exam GI & Abdominal Exam: Soft - Extremities Exam Extremities Exam: Normal Inspection - Neurological Exam Neurological Exam: Alert, Oriented x3 - Psychiatric Exam Psychiatric exam: Normal Affect - Skin Skin Exam: Dry Assessment and Plan - Assessment and Plan (Free Text) Plan: esrd/lupus/chf/anemia/sec hyperpth hd tts per schedule lytes reviewed anemia stable bp ok continue binders
[2016-12-24] MEDS: Levothyroxine 25 MCG TAB PO SCH (06:42)
[2016-12-24] MEDS: Cinacalcet 60 MG TAB PO SCH (08:53)
--- NOTE | 2016-12-24 09:26 | PN ---
DATE: 12/24/2016 SUBJECTIVE: The patient seen and examined. Interim events noted. Consults noted and appreciated. The patient remains in progressive care unit, on telemetry monitoring. Feels better. Denies any chest pain or shortness of breath. without any problems. PHYSICAL EXAMINATION GENERAL: The patient is in no acute distress. VITAL SIGNS: Stable. HEENT: S1 and S2 normal, regular. LUNGS: Good bilateral air exchange. ABDOMEN: Soft, nontender. Ascites present, but much better than admission. No sign of acute abdomen. No guarding. No rigidity. No rebound. EXTREMITIES: No edema. No calf swelling. No tenderness. No acute ischemia. CENTRAL NERVOUS SYSTEM: Essentially unchanged. DIAGNOSTIC DATA: Available diagnostic data reviewed. ASSESSMENT: Overall, the patient's general medical condition is stable. PLAN: As ordered. Kayode Yan MD
[2016-12-25] MEDS: Levothyroxine 25 MCG TAB PO SCH (05:50)
[2016-12-25 05:59] LABS: HEMATOCRIT 32.5 % (35.0-51.0); MEAN CELL VOLUME 99.1 fl (80.0-94.0); MEAN CORPUSCULAR HGB CONC 32.3 g/dL (33.0-37.0); RED CELL DISTRIBUTION WIDTH 15.7 % (11.5-14.5); WHITE BLOOD COUNT 3.6 K/uL (4.8-10.8)
[2016-12-25 06:28] LABS: BILIRUBIN,TOTAL 0.9 mg/dl (0.2-1.3); CALCIUM 7.1 mg/dL (8.4-10.2); TOTAL PROTEIN 6.1 G/DL (6.3-8.2)
[2016-12-25 06:32] LABS: POTASSIUM 6.4 MMOL/L (3.6-5.0)
[2016-12-25] MEDS ORDERED: Sod Polystyrene Sulf 15 gm/60 ml Oral Susp PO ONE (07:29)
[2016-12-25] MEDS: Cinacalcet 60 MG TAB PO SCH (08:42)
--- NOTE | 2016-12-25 10:45 | CP.PCM.PN ---
Subjective - Date & Time of Evaluation Date of Evaluation: 12/25/16 Time of Evaluation: 10:43 - Subjective Subjective: Patient and bed alert and conscious No chest pain Objective - Vital Signs/Intake and Output Vital Signs (last 24 hours): Temp Pulse Resp BP Pulse Ox 98.1 F 62 18 115/78 99 12/25/16 08:00 12/25/16 08:43 12/25/16 08:00 12/25/16 08:43 12/25/16 08:00 - Medications Medications: Current Medications Aspirin (Aspirin) 325 mg PO DAILY [facility] Last Admin: 12/25/16 08:49 Dose: 325 mg Atorvastatin Calcium (Lipitor) 40 mg PO DAILY@2100 [facility] Last Admin: 12/24/16 21:14 Dose: 40 mg Cinacalcet (Sensipar) 60 mg PO DAILY [facility] Last Admin: 12/25/16 08:42 Dose: 60 mg Furosemide (Lasix) 20 mg PO DAILY [facility] Last Admin: 12/25/16 08:42 Dose: 20 mg Heparin Sodium (Porcine) (Heparin) 5,000 units SC Q8 [facility] PRN Reason: Protocol Last Admin: 12/25/16 08:43 Dose: 5,000 units Levothyroxine Sodium (Synthroid) 25 mcg PO DAILY@0630 [facility] Last Admin: 12/25/16 05:50 Dose: 25 mcg Lisinopril (Zestril) 2.5 mg PO DAILY [facility] Last Admin: 12/25/16 08:42 Dose: 2.5 mg Metoprolol Tartrate (Lopressor) 50 mg PO Q12 [facility] Last Admin: 12/25/16 08:43 Dose: 50 mg Sevelamer HCl (Renagel) 1,600 mg PO TID [facility] Last Admin: 12/25/16 08:42 Dose: 1,600 mg - Labs Labs: 12/25/16 05:45 12/25/16 05:45 PT 11.6 Seconds (9.8-13.1) 12/22/16 08:20 INR 1.1 (0.9-1.2) 12/22/16 08:20 APTT 61.1 Seconds (25.6-37.1) H D 12/19/16 07:15 - Constitutional Appears: No Acute Distress - ENT Exam ENT Exam: Mucous Membranes Moist - Respiratory Exam Respiratory Exam: absent: Chest Wall Tenderness - Cardiovascular Exam Cardiovascular Exam: absent: JVD, Rubs - GI/Abdominal Exam GI & Abdominal Exam: Normal Bowel Sounds - Extremities Exam Extremities Exam: absent: Calf Tenderness - Back Exam Back Exam: absent: CVA tenderness (L), CVA tenderness (R) - Neurological Exam Neurological Exam: Alert Assessment and Plan (1) ESRD (end stage renal disease) on dialysis Assessment & Plan: Patient appears to be comfortable although labs reviewed and potassium 6.4 creatinine 10.1 Give stat Kayexalate Called for stat dialysis DC Aldactone Status: Chronic
--- NOTE | 2016-12-25 11:51 | CARD ---
APPROVED REPORT EKG Measurement Heart [id number] SD 220P6 [id number] <Conclusion> Sinus rhythm with 1st degree AV block Otherwise normal ECG
--- NOTE | 2016-12-25 13:30 | PN ---
DATE: 12/25/2016 SUBJECTIVE: The patient seen and examined. Interim events noted. Consults noted and appreciated. Nephrology followup and interventions noted and appreciated. The patient remains in progressive care unit on telemetry monitoring. He feels okay. Denies any specific complaints. No chest pain or shortness of breath. PHYSICAL EXAMINATION GENERAL: The patient is in no acute distress. VITAL SIGNS: Stable. HEART: S1 and S2 normal and regular. LUNGS: Good bilateral air exchange. ABDOMEN: Soft and nontender. Abdominal exam does not reveal any sign of acute abdomen. No guarding. No rigidity. No rebound. Bowel sounds are plus. The patient has ascites. EXTREMITIES: No edema. No calf swelling. No tenderness. No acute ischemia. CENTRAL NERVOUS SYSTEM: Essentially unchanged. DIAGNOSTIC DATA: Available diagnostic data reviewed. Potassium is 6.4. The patient will go for additional dialysis, but we will give a dose also. ASSESSMENT: Overall, the patient is clinically stable. PLAN: As ordered. Kayode Yan MD
[2016-12-26 05:54] LABS: CALCIUM 7.5 mg/dL (8.4-10.2); POTASSIUM 4.3 MMOL/L (3.6-5.0)
[2016-12-26] MEDS: Levothyroxine 25 MCG TAB PO SCH (06:25)
[2016-12-26] MEDS: Cinacalcet 60 MG TAB PO SCH (08:57)
[2016-12-26] MEDS: Digoxin 125 mcg (0.125 mg) Tab PO SCH (09:20)
--- NOTE | 2016-12-26 10:53 | CP.PCM.PN ---
<Dneis Durham - Last Filed: 12/26/16 10:58> Subjective - Date & Time of Evaluation Date of Evaluation: 12/26/16 Time of Evaluation: 07:00 - Subjective Subjective: pt seen and examined at bedside this morning. No acute events overnight. Reports feeling better this morning. Denies any fever/chills, headaches, changes in vision, CP/SOB, N/V/D/C, urinary symptoms. Objective - Vital Signs/Intake and Output Vital Signs (last 24 hours): Temp Pulse Resp BP Pulse Ox 97.9 F 64 18 119/77 100 12/26/16 08:28 12/26/16 08:28 12/26/16 08:28 12/26/16 08:28 12/26/16 08:28 - Medications Medications: Current Medications Aspirin (Aspirin) 325 mg PO DAILY [facility] Last Admin: 12/26/16 08:55 Dose: 325 mg Atorvastatin Calcium (Lipitor) 40 mg PO DAILY@2100 [facility] Last Admin: 12/25/16 21:32 Dose: 40 mg Cinacalcet (Sensipar) 60 mg PO DAILY [facility] Last Admin: 12/26/16 08:57 Dose: 60 mg Digoxin (Lanoxin) 0.125 mg PO DAILY [facility] Last Admin: 12/26/16 09:20 Dose: 0.125 mg Furosemide (Lasix) 20 mg PO DAILY [facility] Last Admin: 12/26/16 08:56 Dose: Not Given Heparin Sodium (Porcine) (Heparin) 5,000 units SC Q8 [facility] PRN Reason: Protocol Last Admin: 12/26/16 08:56 Dose: 5,000 units Levothyroxine Sodium (Synthroid) 25 mcg PO DAILY@0630 [facility] Last Admin: 12/26/16 06:25 Dose: 25 mcg Lisinopril (Zestril) 2.5 mg PO DAILY [facility] Last Admin: 12/26/16 08:57 Dose: Not Given Metoprolol Tartrate (Lopressor) 50 mg PO Q12 [facility] Last Admin: 12/26/16 08:57 Dose: Not Given Sevelamer HCl (Renagel) 1,600 mg PO TID [facility] Last Admin: 12/26/16 08:55 Dose: 1,600 mg - Labs Labs: 12/25/16 05:45 12/26/16 04:00 PT 11.6 Seconds (9.8-13.1) 12/22/16 08:20 INR 1.1 (0.9-1.2) 12/22/16 08:20 APTT 61.1 Seconds (25.6-37.1) H D 12/19/16 07:15 - Constitutional Appears: Non-toxic, No Acute Distress - ENT Exam ENT Exam: Mucous Membranes Moist - Cardiovascular Exam Cardiovascular Exam: REGULAR RHYTHM, RRR - GI/Abdominal Exam GI & Abdominal Exam: Soft, Normal Bowel Sounds. absent: Tenderness - Extremities Exam Extremities Exam: absent: Calf Tenderness - Neurological Exam Neurological Exam: Alert, Awake, CN II-XII Intact - Psychiatric Exam Psychiatric exam: Normal Affect, Normal Mood Assessment and Plan (1) ESRD (end stage renal disease) on dialysis Assessment & Plan: potassium improved to 4.3 pt for HD today Status: Chronic (2) CHF (congestive heart failure), NYHA class IV Assessment & Plan: started on Digoxin, 0.125 repeat P-BNP awaiting cardiology clearance due to severely elevated P-BNP Status: Acute (3) DVT prophylaxis Assessment & Plan: currently on Heparin SCDs Status: Acute <Yan,Kayode K - Last Filed: 12/26/16 13:43> Objective - Vital Signs/Intake and Output Vital Signs (last 24 hours): Temp Pulse Resp BP Pulse Ox 98.0 F 61 20 113/65 100 12/26/16 12:28 12/26/16 12:28 12/26/16 12:28 12/26/16 12:28 12/26/16 12:28 - Medications Medications: Current Medications Aspirin (Aspirin) 325 mg PO DAILY [facility] Last Admin: 12/26/16 08:55 Dose: 325 mg Atorvastatin Calcium (Lipitor) 40 mg PO DAILY@2100 [facility] Last Admin: 12/25/16 21:32 Dose: 40 mg Cinacalcet (Sensipar) 60 mg PO DAILY [facility] Last Admin: 12/26/16 08:57 Dose: 60 mg Digoxin (Lanoxin) 0.125 mg PO DAILY [facility] Last Admin: 12/26/16 09:20 Dose: 0.125 mg Furosemide (Lasix) 20 mg PO DAILY [facility] Last Admin: 12/26/16 08:56 Dose: Not Given Heparin Sodium (Porcine) (Heparin) 5,000 units SC Q8 [facility] PRN Reason: Protocol Last Admin: 12/26/16 08:56 Dose: 5,000 units Levothyroxine Sodium (Synthroid) 25 mcg PO DAILY@0630 [facility] Last Admin: 12/26/16 06:25 Dose: 25 mcg Lisinopril (Zestril) 2.5 mg PO DAILY [facility] Last Admin: 12/26/16 08:57 Dose: Not Given Metoprolol Tartrate (Lopressor) 50 mg PO Q12 [facility] Last Admin: 12/26/16 08:57 Dose: Not Given Sevelamer HCl (Renagel) 1,600 mg PO TID [facility] Last Admin: 12/26/16 08:55 Dose: 1,600 mg - Labs Labs: 12/25/16 05:45 12/26/16 04:00 PT 11.6 Seconds (9.8-13.1) 12/22/16 08:20 INR 1.1 (0.9-1.2) 12/22/16 08:20 APTT 61.1 Seconds (25.6-37.1) H D 12/19/16 07:15 Assessment and Plan - Assessment and Plan (Free Text) Assessment: Patient was personally seen and examined by me in rounds with residents. Available labs and diagnostic data reviewed. Case, Patient's condition and management plan Discussed with residents in rounds. Agree with resident's progress note. Plan: As ordered.
--- NOTE | 2016-12-26 12:44 | CP.PCM.PN ---
Subjective - Date & Time of Evaluation Date of Evaluation: 12/26/16 Time of Evaluation: 12:42 - Subjective Subjective: Patient and bed appears to be comfortable Patient has elevation of proBNP Vital signs stable Objective - Vital Signs/Intake and Output Vital Signs (last 24 hours): Temp Pulse Resp BP Pulse Ox 98.0 F 61 20 113/65 100 12/26/16 12:28 12/26/16 12:28 12/26/16 12:28 12/26/16 12:28 12/26/16 12:28 - Medications Medications: Current Medications Aspirin (Aspirin) 325 mg PO DAILY [facility] Last Admin: 12/26/16 08:55 Dose: 325 mg Atorvastatin Calcium (Lipitor) 40 mg PO DAILY@2100 [facility] Last Admin: 12/25/16 21:32 Dose: 40 mg Cinacalcet (Sensipar) 60 mg PO DAILY [facility] Last Admin: 12/26/16 08:57 Dose: 60 mg Digoxin (Lanoxin) 0.125 mg PO DAILY [facility] Last Admin: 12/26/16 09:20 Dose: 0.125 mg Furosemide (Lasix) 20 mg PO DAILY [facility] Last Admin: 12/26/16 08:56 Dose: Not Given Heparin Sodium (Porcine) (Heparin) 5,000 units SC Q8 [facility] PRN Reason: Protocol Last Admin: 12/26/16 08:56 Dose: 5,000 units Levothyroxine Sodium (Synthroid) 25 mcg PO DAILY@0630 [facility] Last Admin: 12/26/16 06:25 Dose: 25 mcg Lisinopril (Zestril) 2.5 mg PO DAILY [facility] Last Admin: 12/26/16 08:57 Dose: Not Given Metoprolol Tartrate (Lopressor) 50 mg PO Q12 [facility] Last Admin: 12/26/16 08:57 Dose: Not Given Sevelamer HCl (Renagel) 1,600 mg PO TID [facility] Last Admin: 12/26/16 08:55 Dose: 1,600 mg - Labs Labs: 12/25/16 05:45 12/26/16 04:00 PT 11.6 Seconds (9.8-13.1) 12/22/16 08:20 INR 1.1 (0.9-1.2) 12/22/16 08:20 APTT 61.1 Seconds (25.6-37.1) H D 12/19/16 07:15 - Constitutional Appears: No Acute Distress - ENT Exam ENT Exam: absent: Mucous Membranes Moist - Respiratory Exam Respiratory Exam: NORMAL BREATHING PATTERN. absent: Chest Wall Tenderness - Cardiovascular Exam Cardiovascular Exam: absent: JVD, Rubs - GI/Abdominal Exam GI & Abdominal Exam: Normal Bowel Sounds - Extremities Exam Extremities Exam: absent: Calf Tenderness - Back Exam Back Exam: absent: CVA tenderness (L), CVA tenderness (R) - Neurological Exam Neurological Exam: Alert Assessment and Plan (1) ESRD (end stage renal disease) on dialysis Assessment & Plan: End stage renal disease on maintenance hemodialysis patient about to start dialysis again Patient did have extra treatment yesterday so this week he will be having 4 times a week and perhaps from next week until improving his volume status Vital signs stable and tolerating Continue monitoring and hemodialysis 4 times a week for the next 2 weeks or so Status: Chronic
--- NOTE | 2016-12-26 14:05 | CP.PCM.PCO ---
Assessment & Plan - Assessment and Plan (Free Text) Assessment: All rx for medications faxed to [facility] pharmacy pt. will receive all meds prior to d/c plan for HD 4x week per Pt. will be seen by later today possible /dc pending clearance
--- NOTE | 2016-12-26 18:00 | CP.PCM.PN ---
Subjective - Date & Time of Evaluation Date of Evaluation: 12/26/16 Time of Evaluation: 18:00 - Subjective Subjective: ambulated hallway x 2 , developed S3 on exam post ambulation Objective - Vital Signs/Intake and Output Vital Signs (last 24 hours): Temp Pulse Resp BP Pulse Ox 97.5 F L 69 18 129/76 100 12/26/16 15:47 12/26/16 15:47 12/26/16 15:47 12/26/16 15:47 12/26/16 15:47 - Medications Medications: Current Medications Aspirin (Aspirin) 325 mg PO DAILY [facility] Last Admin: 12/26/16 08:55 Dose: 325 mg Atorvastatin Calcium (Lipitor) 40 mg PO DAILY@2100 [facility] Last Admin: 12/25/16 21:32 Dose: 40 mg Cinacalcet (Sensipar) 60 mg PO DAILY [facility] Last Admin: 12/26/16 08:57 Dose: 60 mg Digoxin (Lanoxin) 0.125 mg PO DAILY [facility] Last Admin: 12/26/16 09:20 Dose: 0.125 mg Furosemide (Lasix) 20 mg PO DAILY [facility] Last Admin: 12/26/16 08:56 Dose: Not Given Heparin Sodium (Porcine) (Heparin) 5,000 units SC Q8 [facility] PRN Reason: Protocol Last Admin: 12/26/16 08:56 Dose: 5,000 units Levothyroxine Sodium (Synthroid) 25 mcg PO DAILY@0630 [facility] Last Admin: 12/26/16 06:25 Dose: 25 mcg Lisinopril (Zestril) 2.5 mg PO DAILY [facility] Last Admin: 12/26/16 08:57 Dose: Not Given Metoprolol Tartrate (Lopressor) 50 mg PO Q12 [facility] Last Admin: 12/26/16 08:57 Dose: Not Given Sevelamer HCl (Renagel) 1,600 mg PO TID [facility] Last Admin: 12/26/16 13:52 Dose: Not Given - Labs Labs: 12/25/16 05:45 12/26/16 04:00 PT 11.6 Seconds (9.8-13.1) 12/22/16 08:20 INR 1.1 (0.9-1.2) 12/22/16 08:20 APTT 61.1 Seconds (25.6-37.1) H D 12/19/16 07:15 - Constitutional Appears: Well - Head Exam Head Exam: ATRAUMATIC, NORMAL INSPECTION, NORMOCEPHALIC - Eye Exam Eye Exam: EOMI, Normal appearance, PERRL Pupil Exam: NORMAL ACCOMODATION, PERRL - ENT Exam ENT Exam: Mucous Membranes Moist, Normal Exam - Neck Exam Neck Exam: Full ROM, Normal Inspection. absent: Lymphadenopathy - Respiratory Exam Respiratory Exam: Clear to Ausculation Bilateral, NORMAL BREATHING PATTERN - Cardiovascular Exam Cardiovascular Exam: REGULAR RHYTHM, +S1, +S2, Murmur - GI/Abdominal Exam GI & Abdominal Exam: Soft, Normal Bowel Sounds. absent: Tenderness - Extremities Exam Extremities Exam: Full ROM, Normal Capillary Refill, Normal Inspection. absent : Joint Swelling, Pedal Edema - Back Exam Back Exam: NORMAL INSPECTION - Neurological Exam Neurological Exam: Alert, Awake, CN II-XII Intact, Oriented x3 - Psychiatric Exam Psychiatric exam: Normal Affect, Normal Mood - Skin Skin Exam: Dry, Intact, Normal Color, Warm Assessment and Plan (1) CHF (congestive heart failure), NYHA class IV Assessment & Plan: decompensated with ambulation still needs more fluid removal with HD not to hold ACEI or BB unless SBP < 90 and HR < 55 Status: Acute (2) ESRD (end stage renal disease) on dialysis Assessment & Plan: on HD still needs to remove more fluid with HD Status: Chronic (3) Lupus (systemic lupus erythematosus) Status: Acute
[2016-12-26] MEDS ORDERED: Influenza Vaccine 18yr & older 0.5 ML/45 MCG SYR IM ONE (22:00)
[2016-12-27] MEDS: Levothyroxine 25 MCG TAB PO SCH (05:47)
--- NOTE | 2016-12-27 08:22 | CP.PCM.PN ---
Subjective - Date & Time of Evaluation Date of Evaluation: 12/27/16 Time of Evaluation: 08:19 - Subjective Subjective: Patient and bed Although he complaining of shortness of breath when he when he is walking for a few steps. Objective - Vital Signs/Intake and Output Vital Signs (last 24 hours): Temp Pulse Resp BP Pulse Ox 98.6 F 65 18 102/61 99 12/27/16 08:01 12/27/16 08:01 12/27/16 08:01 12/27/16 08:01 12/27/16 08:01 - Medications Medications: Current Medications Aspirin (Aspirin) 325 mg PO DAILY [facility] Last Admin: 12/26/16 08:55 Dose: 325 mg Atorvastatin Calcium (Lipitor) 40 mg PO DAILY@2100 [facility] Last Admin: 12/26/16 22:07 Dose: 40 mg Cinacalcet (Sensipar) 60 mg PO DAILY [facility] Last Admin: 12/26/16 08:57 Dose: 60 mg Digoxin (Lanoxin) 0.125 mg PO DAILY [facility] Last Admin: 12/26/16 09:20 Dose: 0.125 mg Furosemide (Lasix) 20 mg PO DAILY [facility] Last Admin: 12/26/16 08:56 Dose: Not Given Heparin Sodium (Porcine) (Heparin) 5,000 units SC Q8 [facility] PRN Reason: Protocol Last Admin: 12/27/16 00:49 Dose: 5,000 units Levothyroxine Sodium (Synthroid) 25 mcg PO DAILY@0630 [facility] Last Admin: 12/27/16 05:47 Dose: 25 mcg Lisinopril (Zestril) 2.5 mg PO DAILY [facility] Last Admin: 12/26/16 08:57 Dose: Not Given Metoprolol Tartrate (Lopressor) 50 mg PO Q12 [facility] Last Admin: 12/26/16 22:06 Dose: 50 mg Sevelamer HCl (Renagel) 1,600 mg PO TID [facility] Last Admin: 12/26/16 18:19 Dose: 1,600 mg - Labs Labs: 12/25/16 05:45 12/26/16 04:00 PT 11.6 Seconds (9.8-13.1) 12/22/16 08:20 INR 1.1 (0.9-1.2) 12/22/16 08:20 APTT 61.1 Seconds (25.6-37.1) H D 12/19/16 07:15 - Constitutional Appears: No Acute Distress - ENT Exam ENT Exam: Mucous Membranes Moist - Respiratory Exam Respiratory Exam: NORMAL BREATHING PATTERN. absent: Chest Wall Tenderness - Cardiovascular Exam Cardiovascular Exam: absent: JVD, Rubs - GI/Abdominal Exam GI & Abdominal Exam: Normal Bowel Sounds - Extremities Exam Extremities Exam: absent: Calf Tenderness - Back Exam Back Exam: absent: CVA tenderness (L), CVA tenderness (R) - Neurological Exam Neurological Exam: Alert Assessment and Plan (1) ESRD (end stage renal disease) on dialysis Assessment & Plan: Patient with end stage renal disease on hemodialysis 3 times a week we increased dialysis to 4 times a week Patient has dialysis Sunday and Sunday with ultrafiltration in the range of over 4000 mL of fluid removed because of the hypotensive during dialysis. Patient will continue to have 4 times a week dialysis. With ultrafiltration Aldactone was stopped because of the hyperkalemia. BNP came down to around 140,000 from 220,000 Patient has decompensated congestive heart failure. Cardiology follow-up noted Status: Chronic
[2016-12-27 09:42] LABS: MEAN CELL VOLUME 97.5 fl (80.0-94.0); MEAN CORPUSCULAR HEMOGLOBIN 32.1 pg (27.0-31.0); MEAN CORPUSCULAR HGB CONC 32.9 g/dL (33.0-37.0); RED CELL DISTRIBUTION WIDTH 15.5 % (11.5-14.5); WHITE BLOOD COUNT 2.7 K/uL (4.8-10.8)
[2016-12-27 09:54] LABS: CALCIUM 7.8 mg/dL (8.4-10.2); POTASSIUM 4.3 MMOL/L (3.6-5.0)
[2016-12-27] MEDS: Digoxin 125 mcg (0.125 mg) Tab PO SCH (10:13)
[2016-12-27] MEDS: Cinacalcet 60 MG TAB PO SCH (10:15)
[2016-12-27 10:16] VITALS: PULSE 65
--- NOTE | 2016-12-27 11:23 | CP.PCM.PN ---
Subjective - Date & Time of Evaluation Date of Evaluation: 12/27/16 Time of Evaluation: 11:23 - Subjective Subjective: feeling better today plan for dc home Objective - Vital Signs/Intake and Output Vital Signs (last 24 hours): Temp Pulse Resp BP Pulse Ox 98.6 F 65 18 102/61 99 12/27/16 08:01 12/27/16 10:15 12/27/16 08:01 12/27/16 10:15 12/27/16 08:01 - Medications Medications: Current Medications Aspirin (Aspirin) 325 mg PO DAILY [facility] Last Admin: 12/27/16 10:19 Dose: 325 mg Atorvastatin Calcium (Lipitor) 40 mg PO DAILY@2100 [facility] Last Admin: 12/26/16 22:07 Dose: 40 mg Cinacalcet (Sensipar) 60 mg PO DAILY [facility] Last Admin: 12/27/16 10:15 Dose: 60 mg Digoxin (Lanoxin) 0.125 mg PO DAILY [facility] Last Admin: 12/27/16 10:13 Dose: 0.125 mg Furosemide (Lasix) 20 mg PO DAILY [facility] Last Admin: 12/27/16 10:13 Dose: 20 mg Heparin Sodium (Porcine) (Heparin) 5,000 units SC Q8 [facility] PRN Reason: Protocol Last Admin: 12/27/16 10:09 Dose: 5,000 units Levothyroxine Sodium (Synthroid) 25 mcg PO DAILY@0630 [facility] Last Admin: 12/27/16 05:47 Dose: 25 mcg Lisinopril (Zestril) 2.5 mg PO DAILY [facility] Last Admin: 12/27/16 10:15 Dose: 2.5 mg Metoprolol Tartrate (Lopressor) 50 mg PO Q12 [facility] Last Admin: 12/27/16 10:14 Dose: 50 mg Sevelamer HCl (Renagel) 1,600 mg PO TID [facility] Last Admin: 12/27/16 10:15 Dose: 1,600 mg - Labs Labs: 12/27/16 09:00 12/27/16 09:00 PT 11.6 Seconds (9.8-13.1) 12/22/16 08:20 INR 1.1 (0.9-1.2) 12/22/16 08:20 APTT 61.1 Seconds (25.6-37.1) H D 09/12/17 07:15 - Constitutional Appears: Well - Head Exam Head Exam: ATRAUMATIC, NORMAL INSPECTION, NORMOCEPHALIC - Eye Exam Eye Exam: EOMI, Normal appearance, PERRL Pupil Exam: NORMAL ACCOMODATION, PERRL - ENT Exam ENT Exam: Mucous Membranes Moist, Normal Exam - Neck Exam Neck Exam: Full ROM, Normal Inspection. absent: Lymphadenopathy - Respiratory Exam Respiratory Exam: Clear to Ausculation Bilateral, NORMAL BREATHING PATTERN - Cardiovascular Exam Cardiovascular Exam: REGULAR RHYTHM, +S1, +S2, Murmur - GI/Abdominal Exam GI & Abdominal Exam: Soft, Normal Bowel Sounds. absent: Tenderness - Extremities Exam Extremities Exam: Full ROM, Normal Capillary Refill, Normal Inspection. absent : Joint Swelling, Pedal Edema - Back Exam Back Exam: NORMAL INSPECTION - Neurological Exam Neurological Exam: Alert, Awake, CN II-XII Intact, Normal Gait, Oriented x3 - Psychiatric Exam Psychiatric exam: Normal Affect, Normal Mood - Skin Skin Exam: Dry, Intact, Normal Color, Warm Assessment and Plan (1) CHF (congestive heart failure), NYHA class IV Assessment & Plan: stable improving cont acei, bb outpt titration of meds more frequent HD to bring him to dry weight Status: Acute (2) ESRD (end stage renal disease) on dialysis Assessment & Plan: HD with Status: Chronic (3) Lupus (systemic lupus erythematosus) Status: Acute
[2016-12-27 15:52] VITALS: BP 123/63; PULSE 62; RESP 20; TEMP 98.7; O2SAT 97
== END 2016-12-27 18:47 | disposition home or self-care (01) | DRG 286 ==
LOC: H.ER 21:50 → H.ERHOLD 23:56 → H.TEL 12-18 01:35 → OBSVTOIN 12-18 14:07
PROVIDERS: ADMIT Internal Medicine; ATTEND Internal Medicine
PROC: 0W9G3ZZ Drainage of Peritoneal Cavity, Percutaneous Approach (ICD-10-PCS; principal; 2016-12-18)
PROC: 5A1D60Z (ICD-10-PCS; 2016-12-18)
PROC: 4A023N8 Measurement of Cardiac Sampling and Pressure, Bilateral, Percutaneous Approach (ICD-10-PCS; 2016-12-19)
PROC: B211YZZ Fluoroscopy of Multiple Coronary Arteries using Other Contrast (ICD-10-PCS; 2016-12-19)
PROC: 3E0234Z Introduction of Serum, Toxoid and Vaccine into Muscle, Percutaneous Approach (ICD-10-PCS; 2016-12-27)
DX: I13.2 Hypertensive heart and chronic kidney disease with heart failure and with stage 5 chronic kidney disease, or end stage renal disease (principal); I50.23 Acute on chronic systolic (congestive) heart failure; R18.8 Other ascites; N18.6 End stage renal disease; I27.2 Other secondary pulmonary hypertension; I42.8 Other cardiomyopathies; M32.9 Systemic lupus erythematosus, unspecified; E87.5 Hyperkalemia; Z99.2 Dependence on renal dialysis; I25.10 Atherosclerotic heart disease of native coronary artery without angina pectoris; R74.8 Abnormal levels of other serum enzymes; D64.9 Anemia, unspecified; Z23 Encounter for immunization; Z82.49 Family history of ischemic heart disease and other diseases of the circulatory system